=== PATIENT | female | born 1950 | race Caucasian/White ===

== ENCOUNTER 2021-08-21 09:19 | Day surgery (SDC) | payer MEDICARE ==
[2021-08-17 16:57] VITALS: BMI 39.4
[~2021-08-21 09:19] MED LIST: ALPRAZolam 0.25 MG TAB PO PRN; ALPRAZolam 0.5 MG TAB PO PRN; ASPIRIN 325 MG TAB PO STA; ATORVASTATIN 80 MG TAB PO STA; HEPARIN SODIUM,PORCINE 10,000 UNIT in SODIUM CHLORIDE 0.9% 1,000 ML IRRIGATION PRN; HEPARIN SODIUM,PORCINE 2,500 UNIT in SODIUM CHLORIDE 0.9% 250 ML IRRIGATION PRN; NITROGLYCERIN SL TABS 0.4 MG TAB SUBLINGUAL PRN
[2021-08-21] MEDS ORDERED: SODIUM CHLORIDE 0.9% 1,000 ML in EMPTY BAG 1 BAG IV SCH (09:30)
[2021-08-21] MEDS ORDERED: SODIUM CHLORIDE 0.9% 1,000 ML IV ONE ×3 (09:49→14:30)
[2021-08-21 10:05] LABS: Glucose,Whole Blood 101 mg/dL (75-99)
[2021-08-21 10:17] VITALS: RESP 16; TEMP 98.3
[2021-08-21 10:27] LABS: Calcium 8.9 mg/dL (8.4-10.2); Potassium 3.8 mmol/L (3.5-5.1)
[2021-08-21 10:32] LABS: Basophils # (A) 0.1 k/uL (0-0.2); Basophils % (A) 2 %; Eosinophils # (A) 0.2 k/uL (0-0.7); Eosinophils % (A) 2 %; HCT 36.8 % (34.0-46.0); HGB 11.4 gm/dL (11.4-16.0); Lymphocytes # (A) 2.1 k/uL (1.0-4.8); Lymphocytes % (A) 33 %; MCH 32.3 pg (25.0-35.0); MCHC 30.9 g/dL (31.0-37.0); MCV 104.5 fL (80.0-100.0); Macrocytosis Slight; Mean Platelet Volume 8.2; Monocytes # (A) 0.4 k/uL (0-1.0); Monocytes % (A) 7 %; Neutrophils # (A) 3.5 k/uL (1.3-7.7); Neutrophils % (A) 54 %; Platelet Count 217 k/uL (150-450); RBC 3.52 m/uL (3.80-5.40); RDW 14.1 % (11.5-15.5); WBC 6.5 k/uL (3.8-10.6)
[2021-08-21] MEDS ORDERED: HEPARIN SODIUM 1,000 UN/ML (10ML VL) ONE (12:02)
[2021-08-21] MEDS ORDERED: VERAPAMIL 2.5 MG/ML 2 ML AMP ONE (12:02)
[2021-08-21] MEDS ORDERED: fentaNYL (PF) 50 MCG/ML 2 ML AMP ONE (12:15)
[2021-08-21] MEDS ORDERED: LIDOCAINE 1% PF 10 MG/ML (5 ML AMP) SQ ONE (12:19)
[2021-08-21] MEDS ORDERED: MIDAZOLAM 2 MG/2 ML VIAL IV ONE (12:19)
[2021-08-21] MEDS ORDERED: fentaNYL (PF) 50 MCG/ML 2 ML AMP IV ONE (12:19)
[2021-08-21] MEDS ORDERED: VERAPAMIL SYRINGE (5 MG/10 ML) INTRAARTER ONE (12:20)
[2021-08-21] MEDS ORDERED: HEPARIN SODIUM 1,000 UN/ML (10ML VL) IV ONE (12:21)
[2021-08-21] MEDS ORDERED: IOPAMIDOL-370 125ML BTL INJ ONE (12:31)
[2021-08-21] MEDS ORDERED: SODIUM CHLORIDE 0.9% 1,000 ML IV SCH (12:45)
--- NOTE | 2021-08-21 12:48 | P.CARDCATH ---
Description of Procedure: PROCEDURES PERFORMED: Left heart catheterization, bilateral coronary angiography INDICATION: Abnormal Stress test with anterior ischemia CONSENT:I have discussed the risks, benefits and alternative therapies for the above-mentioned procedure and for both sedation/analgesia as well as necessary blood product administration, if indicated, as they pertain to this patient. The patient has indicated understanding and acceptance of the risks and procedures discussed. PROCEDURE: After the risks, benefits and alternatives of the above mentioned procedure explained in detail with the patient, informed consent was obtained. Patient was given hydration per P[place]on protocol secondary to CKD. Patient was taken to the catheterization lab and prepped and draped in usual fashion. 1% lidocaine was used to anesthetize the right radial artery. A 6-Cymro sheath was placed in the right radial artery using modified Seldinger technique. Left coronary angiography was performed with a 5-Cymro JL 3.5 catheter and right coronary angiography was performed with a 5-Cymro JR5 catheter in various views. A 5-Cymro FR5 catheter was inserted into the left ventricle and pressure measurements were obtained. The right radial sheath was removed and a TR band was placed with hemostasis achieved. The patient tolerated the procedure well. Patient was transported back to the post catheterization holding area in stable condition. Conscious Sedation: Patient was monitored under the direct supervision of vision of myself for conscious sedation using Versed and fentanyl for a total duration of 15 minutes HEMODYNAMICS: Aortic: 178/76 LV: 169/4 LVEDP 9 SELECTIVE CORONARY ARTERIOGRAPHY: LEFT MAIN: The left main is a large caliber vessel which bifurcates into the LAD and circumflex. There is no significant stenosis. LEFT ANTERIOR DESCENDING CORONARY ARTERY: LAD is a large caliber vessel which wraps around to the apex. There is no significant stenosis. LEFT CIRCUMFLEX CORONARY ARTERY: Left circumflex is a large caliber vessel which gives off the PDA and is the dominant vessel and has no significant stenosis. RIGHT CORONARY ARTERY: The right coronary artery is a small caliber vessel which gives off an acute marginal branch and has no significant stenosis. FINAL IMPRESSION: 1. Normal coronary arteries as described above. 2. Normal left sided filling pressures PLAN: 1. Aggressive risk factor modification per most recent ACC/AHA guidelines. 2. Follow-up in the office in 1-2 weeks.
[2021-08-21 17:58] VITALS: BP 152/85; PULSE 62
== END 2021-08-21 16:50 | disposition home or self-care (01) ==
LOC: CATHCVL 09:19
PROVIDERS: ATTEND Internal Medicine
DX: R94.39 Abnormal result of other cardiovascular function study (principal); Z20.822 Contact with and (suspected) exposure to COVID-19
CPT/HCPCS: 93458; 80048; 85025; 87635; C1894; J2250; J2001; J3010; J1644; Q9967

== ENCOUNTER 2021-11-18 04:29 | Inpatient (IN) | payer MEDICARE ==
[2021-11-18] MEDS ORDERED: SODIUM CHLORIDE 0.9% 1,000 ML IV STA (04:42)
--- NOTE | 2021-11-18 04:44 | ED ---
Syncope HPI - General Chief Complaint: Syncope Stated Complaint: Syncope Time Seen by Provider: 11/18/21 04:42 Source: patient, EMS Mode of arrival: EMS Limitations: no limitations - Related Data Home Medications Medication Instructions Recorded Confirmed Aspirin 81 mg PO DAILY 09/30/14 08/21/21 Glimepiride [Amaryl] 1 mg PO DAILY 09/30/14 08/21/21 Insulin Glargine [Lantus] 15 unit SQ QAM 09/30/14 08/21/21 Simvastatin [Zocor] 20 mg PO HS 09/30/14 08/21/21 allopurinoL [Zyloprim] 200 mg PO DAILY 09/30/14 08/21/21 Omeprazole [PriLOSEC] 20 mg PO AC-BRKFST 10/03/14 08/21/21 Gabapentin [Neurontin] 300 mg PO BID 02/13/15 08/21/21 Multivitamins, Thera [Theragran] 1 each PO DAILY 02/13/15 08/21/21 Ascorbic Acid [Vitamin C] 1,000 mg PO DAILY 07/06/15 08/21/21 Calcium Carbonate [Calcium] 1,200 mg PO DAILY 07/06/15 08/21/21 ALPRAZolam [Xanax] 0.5 mg PO HS 07/11/15 08/21/21 Cholecalciferol [Vitamin D3 (25 50 mcg PO Q2D 08/17/21 08/21/21 Mcg = 1000 Iu)] L.acidoph,Paracasei, B.lactis 1 each PO DAILY 08/17/21 08/21/21 [Probiotic] Letrozole [Femara] 2.5 mg PO DAILY 08/17/21 08/21/21 Metoprolol Succinate (ER) [Toprol 25 mg PO HS 08/17/21 08/21/21 Xl] Pioglitazone [Actos] 15 mg PO DAILY 08/17/21 08/21/21 Turmeric Root Extract [Turmeric] 500 mg PO DAILY 08/17/21 08/21/21 diphenhydrAMINE [Benadryl] 25 mg PO DAILY PRN 08/17/21 08/21/21 lisinopriL [Zestril] 5 mg PO HS 08/17/21 08/21/21 Allergies Allergy/AdvReac Type Severity Reaction Status Date / Time cephalexin monohydrate Allergy vaginal Verified 11/18/21 04:34 [From Keflex] irritation gluten Allergy Abdominal Verified 11/18/21 04:34 Pain mold Allergy Dyspnea Verified 11/18/21 04:34 tap water AdvReac Diarrhea Uncoded 11/18/21 04:34 Review of Systems ROS Statement: Those systems with pertinent positive or pertinent negative responses have been documented in the HPI. ROS Other: All systems not noted in ROS Statement are negative. Past Medical History Past Medical History: Asthma, Cancer, Diabetes Mellitus, GERD/Reflux, GI Bleed, Hyperlipidemia, Hypertension, Osteoarthritis (OA), Renal Disease, Skin Disorder Additional Past Medical History / Comment(s): migraines, gout, hx renal failure 2010, currently stage 3-sees Dr. Hayden, skin and left breast cancer , hx psoriasis from chemo/radiation, occasional hand & mouth tremors, GI bleed in May. & was @[facility], 2nd admission end of May. for elevated BP & "heart" problems History of Any Multi-Drug Resistant Organisms: C-DIFF Date of last positivie culture/infection: 2010 MDRO Source:: stool Past Surgical History: Breast Surgery, Cholecystectomy, Hysterectomy Additional Past Surgical History / Comment(s): left breast lumpectomy/lymph node removed, basal cell cancer removed rt shoulder, benign tumor removed from forehead, medi-port insertion & then removal, cataracts removed Past Anesthesia/Blood Transfusion Reactions: Motion Sickness Additional Past Anesthesia/Blood Transfusion Reaction / Comment(s): has had sore throat post-op @times, difficult IV access-best area is right anticubital per pt. 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 ] Respiratory 18 Rate Blood Pressure 147/50 O2 Sat by Pulse 96 Oximetry EKG Findings - EKG Comments: EKG Findings:: EKG is sinus bradycardia 42 OK 148 QRS 90 QTC 416 Medical Decision Making - Lab Data Result diagrams: 11/18/21 05:24 Lab Results 11/18/21 Range/Units 05:24 WBC 10.1 (3.8-10.6) k/uL RBC 3.70 L (3.80-5.40) m/uL Hgb 11.9 (11.4-16.0) gm/dL Hct 37.8 (34.0-46.0) % MCV 102.2 H (80.0-100.0) fL MCH 32.1 (25.0-35.0) pg MCHC 31.4 (31.0-37.0) g/dL RDW 15.3 (11.5-15.5) % Plt Count 265 (150-450) k/uL MPV 8.4 Neutrophils % 72 % Lymphocytes % 17 % Monocytes % 6 % Eosinophils % 2 % Basophils % 1 % Neutrophils # 7.3 (1.3-7.7) k/uL Lymphocytes # 1.7 (1.0-4.8) k/uL Monocytes # 0.6 (0-1.0) k/uL Eosinophils # 0.2 (0-0.7) k/uL Basophils # 0.1 (0-0.2) k/uL Macrocytosis Slight Disposition Clinical Impression: Dehydration, Syncope, Bradycardia, Weakness Disposition: ADMITTED IP TO THIS HOSP Condition: Fair Is patient prescribed a controlled substance at d/c from ED?: No Referrals: Jack Maya MD [Primary Care Provider] - 1-2 days
[2021-11-18 06:06] LABS: Basophils # (A) 0.1 k/uL (0-0.2); Basophils % (A) 1 %; Eosinophils # (A) 0.2 k/uL (0-0.7); Eosinophils % (A) 2 %; HCT 37.8 % (34.0-46.0); HGB 11.9 gm/dL (11.4-16.0); Lymphocytes # (A) 1.7 k/uL (1.0-4.8); Lymphocytes % (A) 17 %; MCH 32.1 pg (25.0-35.0); MCHC 31.4 g/dL (31.0-37.0); MCV 102.2 fL (80.0-100.0); Macrocytosis Slight; Mean Platelet Volume 8.4; Monocytes # (A) 0.6 k/uL (0-1.0); Monocytes % (A) 6 %; Neutrophils # (A) 7.3 k/uL (1.3-7.7); Neutrophils % (A) 72 %; Platelet Count 265 k/uL (150-450); RDW 15.3 % (11.5-15.5); WBC 10.1 k/uL (3.8-10.6)
[2021-11-18] MEDS ORDERED: NALOXONE 0.4 MG/ML 1 ML VIAL IV PRN (06:10)
[2021-11-18] MEDS ORDERED: ONDANSETRON 4 MG/2 ML VIAL IVP PRN (06:10)
[2021-11-18 06:18] LABS: Albumin 4.3 g/dL (3.5-5.0); Calcium 10.1 mg/dL (8.4-10.2); Magnesium 1.4 mg/dL (1.6-2.3); Potassium 4.9 mmol/L (3.5-5.1); Total Bilirubin 0.5 mg/dL (0.2-1.3); Total Protein 7.7 g/dL (6.3-8.2)
[2021-11-18] MEDS: SODIUM CHLORIDE 0.9% 1,000 ML IV SCH (06:29)
[2021-11-18 06:32] LABS: INR 0.9 (<1.2); Prothrombin Time 10.3 sec (9.0-12.0)
[2021-11-18 06:43] LABS: Partial Thromboplastin Time 21.5 sec (22.0-30.0)
--- NOTE | 2021-11-18 07:15 | XR ---
EXAMINATION TYPE: XR chest 1V portable DATE OF EXAM: 11/18/2021 COMPARISON: 07/19/2015 HISTORY: Syncope TECHNIQUE: Single view FINDINGS: There is no heart failure nor confluent pneumonic infiltrate. Costophrenic angles are clear . There are chest leads. Bony thorax is intact IMPRESSION: No active cardiopulmonary disease. There is clearing of the patchy infiltrate in the left lung compared to old exam.
[2021-11-18] MEDS ORDERED: PANTOPRAZOLE 40 MG/10 ML VIAL IV SCH (09:00)
[2021-11-18] MEDS ORDERED: ACETAMINOPHEN TAB 325 MG TAB PO PRN (09:15)
[2021-11-18] MEDS ORDERED: Magnesium Replacement Protocol 1 EACH MISC MISCELLANE PRN (09:22)
--- NOTE | 2021-11-18 09:24 | P.HPIM ---
History of Present Illness This is a pleasant 71 years old female with past medical history of hypertension, hyperlipidemia, diabetes mellitus Patient could not provide information and it was obtained from at bedside. Patient says that recently earlier this month she was [facility]. However at baseline she is awake and alert but she was becoming more sleepy most of the day over the last 2 days and complaining of from some mild headache this morning. She has difficulty moving around our standing up from sitting position and reports weakness in her legs. stated that she's been feeling dizzy and she's been hallucinating and talking about people in the room were normal but the there was a , she was talking on since Earlier this morning she told her she blacked out for half an admit and he thinks she has TIA and that's why he was referred to the hospital. Also she is pending Right flank and back pain. However no reports of chest pain or dyspnea or coughing. No vomiting or diarrhea abdominal pain. No urgency or abnormal. no Reports fever Vitals are stable but she is bradycardic with heart rate 50, 42,39. Shows elevated BP 178/70. Labs are unremarkable including CBC, INR. D-dimer is elevated at 2.1 Creatinine is elevated 1.3. Which looks baseline Normal liver enzymes and bilirubin Chest x-ray: No active cardiopulmonary disease. In the emergency room patient received magnesium and normal saline. V/Q scan was ordered Stock Broker Supervisor consulted Patient had a normal cardiac cath on 08/21/2021 Review of Systems ROS unobtainable: due to mental status Past Medical History Past Medical History: Asthma, Cancer, Diabetes Mellitus, GERD/Reflux, GI Bleed, Hyperlipidemia, Hypertension, Osteoarthritis (OA), Renal Disease, Skin Disorder Additional Past Medical History / Comment(s): migraines, gout, hx renal failure 2010, currently stage 3-sees Dr. Hayden, skin and left breast cancer , hx p soriasis from chemo/radiation, occasional hand & mouth tremors, GI bleed in May. & was @[facility], 2nd admission end of May. for elevated BP & "heart" problems, testing for parkinsons History of Any Multi-Drug Resistant Organisms: C-DIFF Date of last positivie culture/infection: 2010 MDRO Source:: stool Past Surgical History: Breast Surgery, Cholecystectomy, Hysterectomy Additional Past Surgical History / Comment(s): left breast lumpectomy/lymph node removed, basal cell cancer removed rt shoulder, benign tumor removed from forehead, medi-port insertion & then removal, cataracts removed Past Anesthesia/Blood Transfusion Reactions: Motion Sickness Additional Past Anesthesia/Blood Transfusion Reaction / Comment(s): has had sore throat post-op @times, difficult IV access-best area is right anticubital per pt. Past Psychological History: No Psychological Hx Reported Smoking Status: Never smoker Past Alcohol Use History: None Reported Past Drug Use History: None Reported - Past Family History Father Family Medical History: Cancer Additional Family Medical History / Comment(s): prostate, lymphoma Mother Family Medical History: Deep Vein Thrombosis (DVT) Medications and Allergies Home Medications Medication Instructions Recorded Confirmed Type Aspirin 81 mg PO DAILY 09/30/14 11/18/21 History Glimepiride [Amaryl] 1 mg PO BID 09/30/14 11/18/21 History Insulin Glargine [Lantus] 15 unit SQ QAM 09/30/14 11/18/21 History allopurinoL [Zyloprim] 200 mg PO DAILY 09/30/14 11/18/21 History Omeprazole [PriLOSEC] 20 mg PO AC-BRKFST 10/03/14 11/18/21 History Gabapentin [Neurontin] 300 mg PO BID 02/13/15 11/18/21 History Multivitamins, Thera [Theragran] 1 each PO DAILY 02/13/15 11/18/21 History Ascorbic Acid [Vitamin C] 1,000 mg PO DAILY 07/06/15 11/18/21 History Calcium Carbonate [Calcium] 1,200 mg PO DAILY 07/06/15 11/18/21 History ALPRAZolam [Xanax] 0.5 mg PO HS 07/11/15 11/18/21 History Cholecalciferol [Vitamin D3 (25 50 mcg PO Q2D 08/17/21 11/18/21 History Mcg = 1000 Iu)] George Kebede B.lactis 1 each PO DAILY 08/17/21 11/18/21 History [Probiotic] Letrozole [Femara] 2.5 mg PO DAILY 08/17/21 11/18/21 History Pioglitazone [Actos] 15 mg PO DAILY 08/17/21 11/18/21 History Turmeric Root Extract [Turmeric] 500 mg PO DAILY 08/17/21 11/18/21 History diphenhydrAMINE [Benadryl] 25 mg PO DAILY PRN 08/17/21 11/18/21 History lisinopriL [Zestril] 5 mg PO HS 08/17/21 11/18/21 History Acetaminophen [Tylenol Arthritis] 650 mg PO BID 11/18/21 11/18/21 History Atorvastatin [Lipitor] 10 mg PO HS 11/18/21 11/18/21 History calcitrioL [Calcitriol] 0.25 mcg PO WEEKLY 11/18/21 11/18/21 History Allergies Allergy/AdvReac Type Severity Reaction Status Date / Time cephalexin monohydrate Allergy vaginal Verified 11/18/21 04:34 [From Keflex] irritation gluten Allergy Abdominal Verified 11/18/21 04:34 Pain mold Allergy Dyspnea Verified 11/18/21 04:34 tap water AdvReac Diarrhea Uncoded 11/18/21 04:34 Physical Exam Vitals: Vital Signs Temp Pulse Pulse Resp BP Pulse Ox 11/18/21 06:24 97.5 F L 39 L 18 178/70 94 L 11/18/21 05:06 42 L 11/18/21 04:32 97.4 F L 50 L 18 147/50 96 Intake and Output 11/17/21 11/18/21 11/18/21 22:59 06:59 14:59 Other: Weight 104.326 kg 104.326 kg -GENERAL: The patient is drowsy, almost obtunded, except to verbal and tactile stimuli, mumbled some answers before she got back to sleep. Morbidly obese HEENT: Pupils are round and equally reacting to light. EOMI. No scleral icterus. No conjunctival pallor. Normocephalic, atraumatic. No pharyngeal erythema. No thyromegaly. CARDIOVASCULAR: S1 and S2 present. No murmurs, rubs, or gallops. PULMONARY: Chest is clear to auscultation, no wheezing or crackles. ABDOMEN: Soft, nontender, nondistended, normoactive bowel sounds. No palpable organomegaly. MUSCULOSKELETAL: No joint swelling or deformity. EXTREMITIES: No cyanosis, clubbing, or pedal edema. -NEUROLOGICAL: Very drowsy as above, pupils are equal and reactive to light, nor mal symmetry is noted in the movement. Meningeal signs are absent and her neck is supple, her neurological exam is limited by the patient condition SKIN: No rashes. no petechiae. Results CBC & Chem 7: 11/18/21 05:24 11/18/21 05:24 Labs: Abnormal Lab Results - Last 24 Hours (Table) 11/18/21 11/18/21 11/18/21 Range/Units 05:24 05:24 05:24 RBC 3.70 L (3.80-5.40) m/uL MCV 102.2 H (80.0-100.0) fL APTT 21.5 L (22.0-30.0) sec D-Dimer 2.11 H (<0.60) mg/L FEU BUN 24 H (7-17) mg/dL Creatinine 1.37 H (0.52-1.04) mg/dL Glucose 222 H (74-99) mg/dL Magnesium 1.4 L (1.6-2.3) mg/dL Assessment and Plan Assessment: Altered mental status, most likely metabolic/toxic encephalopathy. Ruled out intracranial lesion Acute syncope with bradycardia Elevated d-dimer. Check V/Q scan and venous Doppler of the legs Chronic kidney disease, stage III. Most likely diabetic nephropathy Hypertension Hyperlipidemia Obesity with BMI of 39.5. Plan: This is a pleasant 71 years old female who presents with syncope and bradycardia Continue with telemetry Check TSH Cardiology consult Check V/Q scan and venous Doppler of the legs Check bladder scan and urinalysis Consulting neurologist Continue with the neuro check discontinue Xanax, Benadryl, hold gabapentin. Hold glimepiride and insulin and continue with insulin sliding scale Hold letrozol for her breast cancer Some blood pressure medication lisinopril Check computed tomography scan of the brain Labs and medication were reviewed.. Continue same treatment. Continue with symptomatic treatment. Resume home medication. Monitor lytes and vitals. DVT and GI prophylaxis. Further recommendations as per clinical course of the patient DVT prophylaxis: Subcutaneous heparin (IF CT OF Brain is negative) GI Prophylaxis: Pepcid PT/OT: Pending Prognosis is guarded
--- NOTE | 2021-11-18 09:26 | US ---
EXAMINATION TYPE: US venous doppler duplex LE DATE OF EXAM: 11/18/2021 9:13 AM COMPARISON: NONE CLINICAL HISTORY: leg swelling. SIDE PERFORMED: Bilateral TECHNIQUE: The lower extremity deep venous system is examined utilizing real time linear array sonog darwin with graded compression, doppler sonography and color-flow sonography. VESSELS IMAGED: Common Femoral Vein Deep Femoral Vein Greater Saphenous Vein * Femoral Vein Popliteal Vein Small Saphenous Vein * Proximal Calf Veins (* superficial vessels) Somewhat limited technically difficult study due to large body habitus and patient inability to move legs. Right Leg: Negative for DVT Left Leg: Negative for DVT IMPRESSION: 1. Bilateral lower extremity ultrasound negative for deep venous thrombosis.
[2021-11-18] MEDS: MAGNESIUM SULFATE-D5W PMX 1 GM in DEXTROSE/WATER 1 100ML.BAG IVPB SCH ×2 (09:40→12:17)
--- NOTE | 2021-11-18 11:37 | NM ---
EXAMINATION TYPE: NM pul vent and perfuse DATE OF EXAM: 11/18/2021 COMPARISON: Chest x-ray 11/18/2021 HISTORY: PE TECHNIQUE: Utilizing inhalation of 62.2 mCi Tc 99m DTPA aerosol and intravenous injection of 5 mCi o f Tc 99m MAA, ventilation and perfusion images are acquired post injection in multiple projections. FINDINGS: No moderate or large mismatched defects are evident. No triple matched defects are evident. IMPRESSION: Low probability for pulmonary embolism.
--- NOTE | 2021-11-18 11:55 | CT ---
EXAMINATION TYPE: CT brain wo con DATE OF EXAM: 11/18/2021 COMPARISON: None INDICATION: AMS DLP: 1116.0 mGycm, Automated exposure control for dose reduction was used. CONTRAST: None CT of the brain is performed utilizing 3 mm thick sections through the posterior fossa and 3 mm thick sections through the remaining calvarium. Study is performed within 24 hours of arrival to the hosp ital. No abnormal hyperdensity is present to suggest an acute intracranial hemorrhage. No mass lesion is evident. No acute infarcts are evident. Minimal periventricular white matter hypodensity is present may be rel ated to microvascular ischemic change. Ventricles and sulci are prominent for the patient age. Paranasal sinuses and mastoid air cells within the [id number] are clear. Hyperostosis frontalis internus, normal variant, is present. IMPRESSIONS: 1. Minimal periventricular white matter hypodensity may be related to microvascular ischemic change . Follow-up MRI can be performed as clinically indicated.
[2021-11-18] MEDS: TAMSULOSIN 0.4 MG CAP.ER.24H PO SCH (12:17)
[2021-11-18 13:46] LABS: Appearance,Urine Clear (Clear); Bilirubin,Urine Negative (Negative); Blood,Urine Negative (Negative); Color,Urine Colorless; Glucose,Urine (UA) Negative (Negative); Ketones,Urine Negative (Negative); Leukocyte Esterase,Urine Negative (Negative); Nitrite,Urine Negative (Negative); Protein,Urine Negative (Negative); Specific Gravity,Urine 1.008 (1.001-1.035); Urobilinogen,Urine <2.0 mg/dL (<2.0)
--- NOTE | 2021-11-18 14:01 | P.CRDCN ---
History of Present Illness History of present illness: HISTORY OF PRESENTING ILLNESS Patient is pleasant 71-year-old female with history of hypertension, hyperlipidemia, diabetes mellitus, neuropathy, breast cancer, GERD, prior GI bleed, chronic kidney disease, migraines, tremors, elevated troponins however normal coronary arteries by heart catheterization 08/21/2021 who presents secondary to lethargy and weakness. Patient fairly somnolent and most of history is supplied by . She has been having issues with lightheadedness and dizzy for months however has been worse in the last 2-3 weeks. Has been complaining of headaches as well as sleepiness. She had presented to [facility] his discharge on 10/30 with what appears to be contaminant blood culture and I'll elevated troponin with elevated blood pressures. She was i ncreased on her lisinopril and it also been admitted to the hospital for syncopal episode. Additionally 10/17/2021 she had abdominal pain and hallucinations and CT abdomen and pelvis showed no acute process. believes she was previously on metoprolol however this had been stopped. She denies any chest pain or pressure shortness breath. She is mainly feeling lightheaded like she can pass out. EKG shows sinus bradycardia with heart rate 42 bpm, left axis deviation, no significant ST-T wave abnormalities. Blood pressures have been in the systolics 140s to 170s. Blood work shows hemoglobin 11.9, white blood cell count 10.1, d- dimer 2.1, creatinine 1.3, magnesium 1.4, troponins normal 3. Her home Neurontin, Xanax have been discontinued. Telemetry reveals sinus bradycardia with heart rates in the upper 30s to 40s. REVIEW OF SYSTEMS At the time of my exam: CONSTITUTIONAL: Denies fever or chills. CARDIOVASCULAR: Denies chest pain, shortness of breath, orthopnea, PND or palpitations. +lightheadedness RESPIRATORY: Denies cough. GASTROINTESTINAL: Denies abdominal pain, diarrhea, constipation, nausea or vomiting. MUSCULOSKELETAL: Denies myalgias. NEUROLOGIC: Denies numbness, tingling or weakness. ENDOCRINE: Denies fatigue, weight change, polydipsia or polyurina. GENITOURINARY: Denies burning, hematuria or urgency with micturation. HEMATOLOGIC: Denies history of anemia or bleeding. PHYSICAL EXAMINATION Vital signs reviewed. CONSTITUTIONAL: No apparent distress, lethargic ill appearing HEENT: Head is normocephalic. Pupils are equal, round. Sclerae anicteric. Mucous membranes of the mouth are moist. No JVD. No carotid bruit. CHEST EXAMINATION: Lungs are clear to auscultation. No chest wall tenderness is noted on palpation or with deep breathing. HEART EXAMINATION: Regular rate and rhythm. S1, S2 heard. No murmurs, gallops or rub. ABDOMEN: Soft, nontender. Positive bowel sounds. EXTREMITIES: 2+ peripheral pulses, no lower extremity edema and no calf tenderne ss. NEUROLOGIC EXAMINATION: Patient is awake somnolent ASSESSMENT 1. Lethargy, altered mental status, recent hallucinations unclear etiology. Questionable metabolic etiology versus metastatic versus neurologic process 2. Significant sinus bradycardia unclear symptomatic or not 3. Hypertension elevated 4. Lightheadedness 5. Diabetes mellitus type 2 6. Chronic kidney disease 7. Debility PLAN Patient with multiple recent admissions and workup. Patient with lethargy which appears more metabolic however additionally does have significant bradycardia without any significant negative chronotropic status at home. Check TSH. Trial of dopamine and monitor neurologic status improves at all with higher heart rates. Neurology recommendations appreciated. Obtain records from [facility]. Further recommendations to follow. Past Medical History Past Medical History: Asthma, Cancer, Diabetes Mellitus, GERD/Reflux, GI Bleed, Hyperlipidemia, Hypertension, Osteoarthritis (OA), Renal Disease, Skin Disorder Additional Past Medical History / Comment(s): migraines, gout, hx renal failure 2010, currently stage 3-sees Dr[address] Hayden, skin and left breast cancer , hx psoriasis from chemo/radiation, occasional hand & mouth tremors, GI bleed in May. & was @[facility], 2nd admission end of May. for elevated BP & "heart" problems, testing for parkinsons History of Any Multi-Drug Resistant Organisms: C-DIFF Date of last positivie culture/infection: 2010 MDRO Source:: stool Past Surgical History: Breast Surgery, Cholecystectomy, Hysterectomy Additional Past Surgical History / Comment(s): left breast lumpectomy/lymph node removed, basal cell cancer removed rt shoulder, benign tumor removed from forehead, medi-port insertion & then removal, cataracts removed Past Anesthesia/Blood Transfusion Reactions: Motion Sickness Additional Past Anesthesia/Blood Transfusion Reaction / Comment(s): has had sore throat post-op @times, difficult IV access-best area is right anticubital per pt. Past Psychological History: No Psychological Hx Reported Smoking Status: Never smoker Past Alcohol Use History: None Reported Past Drug Use History: None Reported - Past Family History Father Family Medical History: Cancer Additional Family Medical History / Comment(s): prostate, lymphoma Mother Family Medical History: Deep Vein Thrombosis (DVT) Medications and Allergies Home Medications Medication Instructions Recorded Confirmed Type Aspirin 81 mg PO HS 09/30/14 11/18/21 History Glimepiride [Amaryl] 2 mg PO DAILY 09/30/14 11/18/21 History allopurinoL [Zyloprim] 200 mg PO DAILY 09/30/14 11/18/21 History Gabapentin [Neurontin] 300 mg PO BID 02/13/15 11/18/21 History Multivitamins, Thera [Theragran] 1 tab PO DAILY 02/13/15 11/18/21 History Cholecalciferol [Vitamin D3 (25 50 mcg PO Q48H 08/17/21 11/18/21 History Mcg = 1000 Iu)] George Kebede BKelseylactis 1 cap PO DAILY 08/17/21 11/18/21 History [Probiotic] Letrozole [Femara] 2.5 mg PO DAILY 08/17/21 11/18/21 History Pioglitazone [Actos] 15 mg PO DAILY 08/17/21 11/18/21 History Turmeric Root Extract [Turmeric] 500 mg PO DAILY 08/17/21 11/18/21 History diphenhydrAMINE [Benadryl] 25 mg PO HS 08/17/21 11/18/21 History ALPRAZolam [Xanax] 0.5 mg PO HS 11/18/21 11/18/21 History Acetaminophen [Tylenol Arthritis] 650 mg PO BID 11/18/21 11/18/21 History Ascorbic Acid [Vitamin C] 1,000 mg PO BID 11/18/21 11/18/21 History Atorvastatin [Lipitor] 10 mg PO HS 11/18/21 11/18/21 History Calcium Carbonate/Vitamin D3 1 tab PO BID 11/18/21 11/18/21 History [Calcium 600 mg-D3 20 mcg (800 unit)] Insulin Glargine,Hum.rec.anlog 15 units SQ DAILY 11/18/21 11/18/21 History [Lantus Solostar Pen] Omeprazole [PriLOSEC] 20 mg PO AC-BRKFST 11/18/21 11/18/21 History calcitrioL [Calcitriol] 0.25 mcg PO WE 11/18/21 11/18/21 History lisinopriL [Zestril] 10 mg PO HS 11/18/21 11/18/21 History Allergies Allergy/AdvReac Type Severity Reaction Status Date / Time cephalexin monohydrate Allergy vaginal Verified 11/18/21 12:27 [From Keflex] irritation gluten Allergy Abdominal Verified 11/18/21 12:27 Pain Milk Containing Products Allergy Unknown Verified 11/18/21 12:27 [Dairy] mold Allergy Dyspnea Verified 11/18/21 12:27 tap water AdvReac Diarrhea Uncoded 11/18/21 12:27 Physical Exam Vitals: Vital Signs Temp Pulse Pulse Resp BP BP Pulse Ox 11/18/21 12:00 44 L 16 148/73 95 11/18/21 09:00 44 L 16 11/18/21 08:00 97.4 F L 44 L 16 180/83 94 L 11/18/21 06:24 97.5 F L 39 L 18 178/70 94 L 11/18/21 05:06 42 L 11/18/21 04:32 97.4 F L 50 L 18 147/50 96 Intake and Output 11/17/21 11/18/21 11/18/21 22:59 06:59 14:59 Output Total 1200 Balance -1200 Output: Urine 1200 Other: # Voids 1 Weight 104.326 kg 104.326 kg Results 11/18/21 05:24 11/18/21 05:24 Cardiac Enzymes 11/18/21 11/18/21 11/18/21 Range/Units 05:24 05:24 09:43 AST 30 (14-36) U/L Troponin I <0.012 <0.012 (0.000-0.034) ng/mL 11/18/21 Range/Units 12:06 AST (14-36) U/L Troponin I <0.012 (0.000-0.034) ng/mL Coagulation 11/18/21 Range/Units 05:24 PT 10.3 (9.0-12.0) sec APTT 21.5 L (22.0-30.0) sec CBC 11/18/21 Range/Units 05:24 WBC 10.1 (3.8-10.6) k/uL RBC 3.70 L (3.80-5.40) m/uL Hgb 11.9 (11.4-16.0) gm/dL Hct 37.8 (34.0-46.0) % Plt Count 265 (150-450) k/uL Comprehensive Metabolic Panel 11/18/21 Range/Units 05:24 Sodium 141 (137-145) mmol/L Potassium 4.9 (3.5-5.1) mmol/L Chloride 105 (98-107) mmol/L Carbon Dioxide 27 (22-30) mmol/L BUN 24 H (7-17) mg/dL Creatinine 1.37 H (0.52-1.04) mg/dL Glucose 222 H (74-99) mg/dL Calcium 10.1 (8.4-10.2) mg/dL AST 30 (14-36) U/L ALT 19 (4-34) U/L Alkaline Phosphatase 65 (38-126) U/L Total Protein 7.7 (6.3-8.2) g/dL Albumin 4.3 (3.5-5.0) g/dL Current Medications Generic Name Dose Route Start Last Admin Trade Name Freq PRN Reason Stop Dose Admin Acetaminophen 650 mg 11/18/21 09:15 Acetaminophen Tab 325 Mg Tab PO QID PRN Fever and/ or Mild Pain Allopurinol 200 mg 11/19/21 09:00 Allopurinol 100 Mg Tab PO DAILY [facility] Aspirin 81 mg 11/19/21 09:00 Aspirin 81 Mg PO DAILY [facility] Atorvastatin Calcium 10 mg 11/18/21 21:00 Atorvastatin 10 Mg Tab PO HS COLTEN Calcitriol 0.25 mcg 11/21/21 09:00 Calcitriol 0.25 Mcg Cap PO WEEKLY [facility] Heparin Sodium (Porcine) 5,000 unit 11/18/21 21:00 Heparin Sodium,Porcine/Pf 5,000 Unit/0.5 Ml Syringe SQ Q12HR [facility] Sodium Chloride 1,000 mls @ 20 mls/hr 11/18/21 06:30 11/18/21 06:29 Saline 0.9% IV 20 mls/hr .Q24H COLTEN Administration Lisinopril 5 mg 11/18/21 21:00 Lisinopril 5 Mg Tab PO HS [facility] Miscellaneous Information 1 each 11/18/21 09:22 Magnesium Replacement Protocol 1 Each Misc MISCELLANE DAILY PRN Per Protocol Protocol Naloxone HCl 0.2 mg 11/18/21 06:10 Naloxone 0.4 Mg/Ml 1 Ml Vial IV Q2M PRN Opioid Reversal Ondansetron HCl 4 mg 11/18/21 06:10 Ondansetron 4 Mg/2 Ml Vial IVP Q8HR PRN Nausea And Vomiting Pantoprazole Sodium 40 mg 11/18/21 09:00 11/18/21 09:40 Pantoprazole 40 Mg/10 Ml Vial IV 40 mg DAILY COLTEN Administration Tamsulosin HCl 0.4 mg 11/18/21 11:15 11/18/21 12:17 Tamsulosin 0.4 Mg Cap.Er.24h PO 0.4 mg PC-BRKFST COLTEN Administration Intake and Output 11/17/21 11/18/21 11/18/21 22:59 06:59 14:59 Output Total 1200 Balance -1200 Output: Urine 1200 Other: # Voids 1 Weight 104.326 kg 104.326 kg Patient Weight 11/19/21 06:59 Weight 104.326 kg 11/18/21 05:24 11/18/21 05:24
[2021-11-18] MEDS ORDERED: DOPamine DRIP 800 MG in DEXTROSE/WATER 1 250ML.BAG IV SCH (14:30)
[2021-11-18] MEDS: ATORVASTATIN 10 MG TAB PO SCH (20:40)
[2021-11-18] MEDS: HEPARIN SODIUM,PORCINE/PF 5,000 UNIT/0.5 ML SYRINGE SQ SCH (20:40)
[2021-11-18] MEDS: lisinopriL 5 MG TAB PO SCH (20:40)
--- NOTE | 2021-11-19 01:03 | P.CNNES ---
History of Present Illness Consult date: 11/18/21 Requesting physician: Clark Morton Reason for Consult: AMS History of Present Illness: Patient is a 71-year-old right-handed female with history of hypertension, diabetes came to the hospital by ambulance early this morning today at 4:29 AM for evaluation of recurrent syncopal spells. Patient states that she got up to go to the bathroom, felt little dizzy, called her . She came back, went into her bedroom and was standing by the bed, but she just about passed out therefore she laid her in the bed. Patient states "I was very confused, I was hurting and took a Tylenol. Patient is not a very good historian. I spoke to patient's on the phone, who provided additional history. He states that patient has had near syncopal spells once in September, 3 times in October including this current one. All of the spells occurred while she was standing up on her feet. When it happens, he lays her down. Only one time when she was standing, he had her sit on her walker, and patient then stiffened up, and slid down the walker. Ascending this episode lasts for about 15-20 seconds. There is no convulsive activity, tongue bite or loss of control of urine. Patient states she has a cane and walker. She does not use device most of the time. Only when she first wakes up in the morning, she uses a cane because of arthritis. When it is raining or a bad weather, then she uses her walker. According to the EMS flow sheet, when they arrived, patient was laying on side of the bed. Patient states that she had stood up, got dizzy and that the room went dark. She denied loss of consciousness or having fallen. Patient was alert and oriented 4 when EMS arrived. EKG showed sinus bradycardia. Stroke scale was negative. Patient's blood pressure at the scene was 113/59, pulse rate 56 respiration 16 saturation 95%, blood sugar 252. Repeat blood pressure was 94/57. Blood pressure on arrival 147/50. She is afebrile. Blood test shows normal WBC hemoglobin 11.9, with elevated MCV 102.2. Platelets are normal. Electrolytes are normal, BUN 24, creatinine 1.37. Hepatic panel is normal. Troponin negative. UA negative. CT head revealed minimal periventricular white matter hypodensity may be related to microvascular ischemic change. I personally reviewed CT head, agree with the findings. Coleman ous Doppler negative for DVT in either lower limbs. Chest x-ray showed no acute cardiac or disease. Patchy infiltrate in the left lung compared to the old exam. EKG showed sinus bradycardia with heart rate 42. Patient's home medications include aspirin 81 mg, Amaryl, allopurinol, gabapentin 300 mg twice a day, multivitamins, vitamin D, Femara, Actos, Lipitor 10 mg, insulin, lisinopril 10 mg, Xanax 0.5 mg at bedtime. Patient denies any tobacco use or alcohol use. She has diabetes for last 10 years also has hypertension. Patient says that she lost 35 pounds intentionally, and has helped with her diabetes. Patient is following with Dr. Álvarez. Patient had an EEG performed last week at his office, the results are not available. She had an MRI of the brain scheduled next Friday, ENG on Friday, MRI of the lumbar spine and VAT on the MEAGAN and then she will follow up with him about these results on 12/10/2021. Review of Systems Patient has chronic back pain. Patient has dizziness, lightheadedness. Osteoarthritis. Denies any chest pain, double vision, shortness of breath, diarrhea. As above in detail. All other review of systems, reviewed and noncontributory Past Medical History Past Medical History: Asthma, Cancer, Diabetes Mellitus, GERD/Reflux, GI Bleed, Hyperlipidemia, Hypertension, Osteoarthritis (OA), Renal Disease, Skin Disorder Additional Past Medical History / Comment(s): migraines, gout, hx renal failure 2010, currently stage 3-sees Dr. Hayden, skin and left breast cancer , hx psoriasis from chemo/radiation, occasional hand & mouth tremors, GI bleed in May. & was @[facility], 2nd admission end of May. for elevated BP & "heart" problems, testing for parkinsons History of Any Multi-Drug Resistant Organisms: C-DIFF Date of last positivie culture/infection: 2010 MDRO Source:: stool Past Surgical History: Breast Surgery, Cholecystectomy, Hysterectomy Additional Past Surgical History / Comment(s): left breast lumpectomy/lymph node removed, basal cell cancer removed rt shoulder, benign tumor removed from forehead, medi-port insertion & then removal, cataracts removed Past Anesthesia/Blood Transfusion Reactions: Motion Sickness Additional Past Anesthesia/Blood Transfusion Reaction / Comment(s): has had sore throat post-op @times, difficult IV access-best area is right anticubital per pt. Past Psychological History: No Psychological Hx Reported Smoking Status: Never smoker Past Alcohol Use History: None Reported Past Drug Use History: None Reported - Past Family History Father Family Medical History: Cancer Additional Family Medical History / Comment(s): prostate, lymphoma Mother Family Medical History: Deep Vein Thrombosis (DVT) Medications and Allergies Home Medications Medication Instructions Recorded Confirmed Type Aspirin 81 mg PO HS 09/30/14 11/18/21 History Glimepiride [Amaryl] 2 mg PO DAILY 09/30/14 11/18/21 History allopurinoL [Zyloprim] 200 mg PO DAILY 09/30/14 11/18/21 History Gabapentin [Neurontin] 300 mg PO BID 02/13/15 11/18/21 History Multivitamins, Thera [Theragran] 1 tab PO DAILY 02/13/15 11/18/21 History Cholecalciferol [Vitamin D3 (25 50 mcg PO Q48H 08/17/21 11/18/21 History Mcg = 1000 Iu)] L.acidoph,Paracasei, B.lactis 1 cap PO DAILY 08/17/21 11/18/21 History [Probiotic] Letrozole [Femara] 2.5 mg PO DAILY 08/17/21 11/18/21 History Pioglitazone [Actos] 15 mg PO DAILY 08/17/21 11/18/21 History Turmeric Root Extract [Turmeric] 500 mg PO DAILY 08/17/21 11/18/21 History diphenhydrAMINE [Benadryl] 25 mg PO HS 08/17/21 11/18/21 History ALPRAZolam [Xanax] 0.5 mg PO HS 11/18/21 11/18/21 History Acetaminophen [Tylenol Arthritis] 650 mg PO BID 11/18/21 11/18/21 History Ascorbic Acid [Vitamin C] 1,000 mg PO BID 11/18/21 11/18/21 History Atorvastatin [Lipitor] 10 mg PO HS 11/18/21 11/18/21 History Calcium Carbonate/Vitamin D3 1 tab PO BID 11/18/21 11/18/21 History [Calcium 600 mg-D3 20 mcg (800 unit)] Insulin Glargine,Hum.rec.anlog 15 units SQ DAILY 11/18/21 11/18/21 History [Lantus Solostar Pen] Omeprazole [PriLOSEC] 20 mg PO AC-BRKFST 11/18/21 11/18/21 History calcitrioL [Calcitriol] 0.25 mcg PO WE 11/18/21 11/18/21 History lisinopriL [Zestril] 10 mg PO HS 11/18/21 11/18/21 History Allergies Allergy/AdvReac Type Severity Reaction Status Date / Time cephalexin monohydrate Allergy vaginal Verified 11/18/21 12:27 [From Keflex] irritation gluten Allergy Abdominal Verified 11/18/21 12:27 Pain Milk Containing Products Allergy Unknown Verified 11/18/21 12:27 [Dairy] mold Allergy Dyspnea Verified 11/18/21 12:27 tap water AdvReac Diarrhea Uncoded 11/18/21 12:27 Physical Examination - Vital Signs Vital Signs: Vital Signs Temp Pulse Pulse Resp BP BP Pulse Ox 11/18/21 12:00 44 L 16 148/73 95 11/18/21 09:00 44 L 16 11/18/21 08:00 97.4 F L 44 L 16 180/83 94 L 11/18/21 06:24 97.5 F L 39 L 18 178/70 94 L 11/18/21 05:06 42 L 11/18/21 04:32 97.4 F L 50 L 18 147/50 96 Intake and Output 11/17/21 11/18/21 11/18/21 22:59 06:59 14:59 Output Total 1200 Balance -1200 Output: Urine 1200 Other: # Voids 1 Weight 104.326 kg 104.326 kg Patient is an elderly female, in no acute distress. Patient is alert awake oriented to time place and person. Patient states it is November 2021, and that she is in [facility]. She knows name of the current president. Speech and language functions are normal. Attention, c oncentration and fund of knowledge is adequate. On cranial examination, pupils are equal, round and reacting to light, visual norris are full on confrontation, extraocular muscles are intact with no nystagmus. Face is symmetric, tongue protrudes to the midline. Palatal elevation and sensation normal, hearing and shoulder shrug normal, facial sensation normal. Shoulder shrug normal. On muscle strength testing, there is no pronator drift and the strength is normal in arms and legs distally and proximally, except left hip flexion, which is 5-related to arthritis. Deep tendon reflexes are symmetric, 1+ at biceps, 1+ brachioradialis, 2 at the knees 1 ankles and plantars are flat bilaterally. Sensory to touch is equal with no neglect. Patient states both feet are numb due to her diabetes. Cerebellar function showed no ataxia for [id number] testing. No dysdiadochokinesia. Tone and bulk of muscles normal. Gait deferred. On general examination, there is no carotid bruit or murmur, S1-S2 audible. Abdomen is soft nontender. No organomegaly, bowel sounds present. Chest is c lear. Peripheral pulses are present. No edema. Results - Laboratory Findings CBC and BMP: 11/18/21 05:24 11/18/21 05:24 Abnormal Lab Findings: Abnormal Labs 11/18/21 11/18/21 11/18/21 05:24 05:24 05:24 RBC 3.70 L MCV 102.2 H APTT 21.5 L D-Dimer 2.11 H BUN 24 H Creatinine 1.37 H Glucose 222 H Magnesium 1.4 L Assessment and Plan Assessment: * Recurrent near syncopal spells 4 (once in September, 3 in October), possibly orthostatic versus vasovagal. All of these spells occurred while patient was standing up on her feet. * Hypertension * Hyperlipidemia * Diabetes * Osteoarthritis * Chronic renal insufficiency * Macrocytosis Plan: * Check orthostatics. Consider tilt table test. * I recommended EEG, carotid Doppler, and a 2-D echo. Patient states that she had an EEG already performed at Dr. Álvarez office last week, the results are pending. She had carotid Doppler and echo performed at [facility] recently with these near syncopal spells. Patient did not want to repeat these testing. We will try to obtain results for our review. * Check B12, folate. TSH is normal 2.47. Hemoglobin A1c. * Patient is already scheduled for an MRI of the brain, ENG, MRI of the lumbar spine, VAT and MEAGAN at Dr. Álvarez office next week. * Continue aspirin 81 mg and Lipitor 10 mg. * Dr. Yuan Styles will resume neurology service in the morning. * Thank you for the consult
[2021-11-19] MEDS: PANTOPRAZOLE 40 MG TABLET PO SCH (06:27)
[2021-11-19 07:32] LABS: Basophils # (A) 0.1 k/uL (0-0.2); Basophils % (A) 1 %; Eosinophils # (A) 0.2 k/uL (0-0.7); Eosinophils % (A) 2 %; HCT 38.5 % (34.0-46.0); HGB 11.9 gm/dL (11.4-16.0); Lymphocytes # (A) 1.4 k/uL (1.0-4.8); Lymphocytes % (A) 16 %; MCH 31.4 pg (25.0-35.0); MCV 101.3 fL (80.0-100.0); Macrocytosis Slight; Mean Platelet Volume 8.1; Monocytes # (A) 0.6 k/uL (0-1.0); Monocytes % (A) 6 %; Neutrophils # (A) 6.5 k/uL (1.3-7.7); Neutrophils % (A) 73 %; Platelet Count 243 k/uL (150-450); RDW 15.2 % (11.5-15.5); WBC 8.9 k/uL (3.8-10.6)
[2021-11-19 07:58] LABS: Albumin 4.3 g/dL (3.5-5.0); Calcium 9.9 mg/dL (8.4-10.2); Magnesium 1.5 mg/dL (1.6-2.3); Potassium 4.4 mmol/L (3.5-5.1); Total Bilirubin 0.7 mg/dL (0.2-1.3); Total Protein 7.8 g/dL (6.3-8.2)
[2021-11-19] MEDS ORDERED: Magnesium Replacement Protocol 1 EACH MISC MISCELLANE PRN (08:24)
[2021-11-19] MEDS: ASPIRIN 81 MG PO SCH (08:31)
[2021-11-19] MEDS: allopurinoL 100 MG TAB PO SCH (08:31)
[2021-11-19] MEDS: TAMSULOSIN 0.4 MG CAP.ER.24H PO SCH (08:31)
[2021-11-19] MEDS: HEPARIN SODIUM,PORCINE/PF 5,000 UNIT/0.5 ML SYRINGE SQ SCH ×2 (08:31→20:27)
[2021-11-19] MEDS ORDERED: DEXTROSE 50% SYRINGE 50 ML IVP PRN ×2 (08:32)
[2021-11-19] MEDS: MAGNESIUM SULFATE-D5W PMX 1 GM in DEXTROSE/WATER 1 100ML.BAG IVPB SCH ×2 (08:41→11:19)
[2021-11-19] MEDS ORDERED: DOPamine DRIP 800 MG in DEXTROSE/WATER 1 250ML.BAG IV SCH (10:00)
[2021-11-19 11:35] LABS: Glucose,Whole Blood 153 mg/dL (70-110)
[2021-11-19] MEDS: INSULIN ASPART (NovoLOG) 100 UNIT/ML VIAL SQ SCH ×3 (12:06→20:27)
--- NOTE | 2021-11-19 12:39 | P.PN ---
Subjective History of Present Illness: This is a pleasant 71 years old female with past medical history of hypertension, hyperlipidemia, diabetes mellitus Patient could not provide information and it was obtained from at bedside. Patient says that recently earlier this month she was [facility]. However at baseline she is awake and alert but she was becoming more sleepy most of the day over the last 2 days and complaining of from some mild headache this morning. She has difficulty moving around our standing up from sitting position and reports weakness in her legs. stated that she's been feeling dizzy and she's been hallucinating and talking about people in the room were normal but the there was a , she was talking on since Earlier this morning she told her she blacked out for half an admit and he thinks she has TIA and that's why he was referred to the hospital. Also she is pending Right flank and back pain. However no reports of chest pain or dyspnea or coughing. No vomiting or diarrhea abdominal pain. No urgency or abnormal. no Reports fever Vitals are stable but she is bradycardic with heart rate 50, 42,39. Shows elevated BP 178/70. Labs are unremarkable including CBC, INR. D-dimer is elevated at 2.1 Creatinine is elevated 1.3. Which looks baseline Normal liver enzymes and bilirubin Chest x-ray: No active cardiopulmonary disease. In the emergency room patient received magnesium and normal saline. V/Q scan was ordered Obstetrics Gynecology Physician consulted Patient had a normal cardiac cath on 08/21/2021 in reviewing the records from [facility], patient was discharge on 10/30 for positive blood culture which was contaminant, elevated troponin and uncontrolled hypertension. Also because she fell and she could not get up. At that time she was discharged home with home care per physical therapy evaluation, the increase her dose of lisinopril to 10 mg On 10/25 also she was in the hospital for syncope and elevated troponin, at that time her troponin were stopped. Also on 10/17/2021 visited the emergency room for pain and lower abdomen and hallucination and she was feeling lightheadedness, at that time she was found to have urinary tract infection and she received antibiotics CT of the abdomen and pelvis without oral or IV contrast from 10/27/2021: No acute abdominal abnormality or pelvis abnormality. Kidneys were normal in size with no hydronephrosis 11/20/2011 Patient awake alert, sitting in the chair feeling cold and with blunt and on. Patient has hyperthermia and temperature this morning was 96.6. Other vitals are stable. His mentation is back to normal awake alert and answering questions appropriately and follows commands. She denies any complaints this morning. Patient says that she's been having hallucination since August. she denies chest pain or dyspnea . No abdominal pain or vomiting or diarrhea. She is currently on dopamine drip and her heart rate improved to low 60s. Patient been evaluated by neurologist, she is a scheduled for MRI of the brain and lumbar spine with her neurologist Dr. Ferreira within one week. She already had EEG in his office on the result is pending. Per neurologist. Urine analysis is negative. Folate more than 20, TSH normal 2.4, protocol stone and is negative at 0.07. Vitamin B12: Pending. We ordered blood culture today. No other signs of infection She has evidence of urinary retention with more than 900 mL, discussed with staff to place Leija cath also patient has been off low hemoglobin A1c 6.7%, hypoglycemia highly suspected, as patient was on Actos 15 mg but also she was and to medication which might cause hypoglycemia including Lantus 15 units daily and Amaryl 2 mg. Hold this medication were held on admission and today she did only 2 units of extra insulin. Objective - Vital Signs Vital signs: Vital Signs Temp 97.7 F 11/19/21 11:38 Pulse 68 11/19/21 11:38 Resp 20 11/19/21 11:38 BP 105/52 11/19/21 11:38 Pulse Ox 93 L 11/19/21 11:38 FiO2 Intake & Output 11/18/21 11/19/21 11/19/21 18:59 06:59 18:59 Intake Total 780 362.579 Output Total 1200 3200 Balance -420 -3200 362.579 Weight 104.326 kg Intake: Intake, IV Titration 182.579 Amount DOPamine DRIP 800 mg In 182.579 Dextrose/Water 1 250ml. bag @ 5 MCG/KG/MIN 9.781 mls/hr IV .Q24H [facility] Rx#: [id number] Oral 780 180 Output: Urine 1200 3200 Uretheral (Leija) 1000 Other: Voiding Method Indwelling Catheter Indwelling Catheter # Voids 1 - Exam -GENERAL: The patient is alert and oriented x3, not in any acute distress. Obese HEENT: Pupils are round and equally reacting to light. EOMI. No scleral icterus. No conjunctival pallor. Normocephalic, atraumatic. No pharyngeal erythema. No thyromegaly. CARDIOVASCULAR: S1 and S2 present. No murmurs, rubs, or gallops. PULMONARY: Chest is clear to auscultation, no wheezing or crackles. ABDOMEN: Soft, nontender, nondistended, normoactive bowel sounds. No palpable organomegaly. MUSCULOSKELETAL: No joint swelling or deformity. EXTREMITIES: No cyanosis, clubbing, or pedal edema. NEUROLOGICAL: Gross neurological examination did not reveal any focal deficits. SKIN: No rashes. no petechiae. - Labs CBC & Chem 7: 11/19/21 07:11 11/19/21 07:11 Labs: Abnormal Lab Results - Last 24 Hours (Table) 11/19/21 11/19/21 11/19/21 Range/Units 07:11 07:11 07:11 MCV 101.3 H (80.0-100.0) fL BUN 20 H (7-17) mg/dL Creatinine 1.17 H (0.52-1.04) mg/dL Glucose 147 H (74-99) mg/dL POC Glucose (mg/dL) (70-110) mg/dL Hemoglobin A1c 6.7 H (0.0-6.0) % Magnesium 1.5 L (1.6-2.3) mg/dL 11/19/21 Range/Units 11:34 MCV (80.0-100.0) fL BUN (7-17) mg/dL Creatinine (0.52-1.04) mg/dL Glucose (74-99) mg/dL POC Glucose (mg/dL) 153 H (70-110) mg/dL Hemoglobin A1c (0.0-6.0) % Magnesium (1.6-2.3) mg/dL Assessment and Plan Assessment: Altered mental status, most likely metabolic/toxic encephalopathy. Completely resolved. Suspected multifactorial secondary to urinary retention, hypoglycemia highly suspected syncope with bradycardia. Rule out neurological causes Acute urinary retention Diabetes mellitus with low hemoglobin A1c 6.7%. There might be suspicion of hypoglycemia givent his tight control of glucose in this elderly lady Elevated d-dimer. V/Q scan: Low probability for PE and venous Doppler of the legs is negative for DVT Chronic kidney disease, stage III. Most likely diabetic nephropathy Hypertension Hyperlipidemia Obesity with BMI of 39.5. Plan: This is a pleasant 71 years old female who presents with syncope and bradycardia Continue with telemetry Cardiology consult Continue with Leija catheter, discussed with the staff. Start Flomax Consulting neurologist Continue with the neuro check . discontinue Xanax, Benadryl, hold gabapentin. Hold glimepiride and insulin and continue with insulin sliding scale. Hypoglycemia is suspected. Actos is on hold as well Hold letrozol for her breast cancer Some blood pressure medication lisinopril Check computed tomography scan of the brain Labs and medication were reviewed.. Continue same treatment. Continue with symptomatic treatment. Resume home medication. Monitor lytes and vitals. DVT and GI prophylaxis. Further recommendations as per clinical course of the patient DVT prophylaxis: Subcutaneous heparin (IF CT OF Brain is negative) GI Prophylaxis: Pepcid PT/OT: Pending Prognosis is guarded
--- NOTE | 2021-11-19 13:20 | P.PN ---
Subjective Patient is pleasant 71-year-old female with history of hypertension, hyperlipidemia, diabetes mellitus, neuropathy, breast cancer, GERD, prior GI ble ed, chronic kidney disease, migraines, tremors, elevated troponins however normal coronary arteries by heart catheterization 08/21/2021. She follows with Dr. Lam. We are consulted to see patient for bradycardia. She presents secondary to lethargy and weakness. On admission, patient was fairly somnolent and most of history is supplied by . She has been having issues with lightheadedness and dizzy for months however has been worse in the last 2-3 weeks. Has been complaining of headaches as well as sleepiness. She had presented to [facility] his discharge on 10/30 with what appears to be contaminant blood culture and had elevated troponin with elevated blood pressures. She was increased on her lisinopril and it also been admitted to the hospital for syncopal episode. Additionally 10/17/2021 she had abdominal pain and hallucinations and CT abdomen and pelvis showed no acute process. believes she was previously on metoprolol however this had been stopped. EKG on admission revealed sinus bradycardia with heart rate 42 bpm, left axis deviation, no significant ST-T wave abnormalities.Telemetry on admission revealed sinus bradycardia with heart rates in the upper 30s to 40s. Patient started on IV dopamine at 5mcg/kg/hr. Echo in 05/2021 in the office revealed EF of 6065 %, mild to moderate mitral regurgitation, RVSP of 36 mg of mercury 11/19/2021 Patient seen and examined at bedside, no acute distress. She is more alert this morning. Oriented x 3. Heart rate is improved in sinus mechanism heart rate 50s to 60s. She continues to be on IV dopamine. She is not on any AV zeeshan blocking agents. BP 133/49. Labs: TSH within normal limits. Pulmonary negative 3. PHYSICAL EXAMINATION Vital signs reviewed. CONSTITUTIONAL: No apparent distress, lethargic ill appearing HEENT: Head is normocephalic. No JVD. CHEST EXAMINATION: Lungs are clear to auscultation. No chest wall tenderness is noted on palpation or with deep breathing. HEART EXAMINATION: Regular rate and rhythm. S1, S2 heard. Systolic ejection murmur at the apex ABDOMEN: Soft, nontender. Positive bowel sounds. EXTREMITIES: 2+ peripheral pulses, no lower extremity edema and no calf tenderness. NEUROLOGIC EXAMINATION: Patient is awake somnolent ASSESSMENT Lethargy, altered mental status, recent hallucinations unclear etiology. Questionable metabolic etiology versus metastatic versus neurologic process Significant sinus bradycardia unclear symptomatic or not Near Syncopal episodes at home Hypertension elevated Lightheadedness Diabetes mellitus type 2 Chronic kidney disease Debility PLAN Patient with multiple recent admissions and workup. Patient with lethargy which appears more metabolic however additionally does have significant bradycardia without any significant negative chronotropic status at home. Monitor Heart rates no telemetry and wean off Dopamine drip as tolerated Neurology recommendations appreciated. Further recommendations to follow. Nurse practitioner note has been reviewed by physician. Signing provider agrees with the documented findings, assessment, and plan of care. Objective - Vital Signs Vital signs: Vital Signs Temp 97.7 F 11/19/21 11:38 Pulse 68 11/19/21 11:38 Resp 20 11/19/21 11:38 BP 105/52 11/19/21 11:38 Pulse Ox 93 L 11/19/21 11:38 FiO2 Intake & Output 11/18/21 11/19/21 11/19/21 18:59 06:59 18:59 Intake Total 780 362.579 Output Total 1200 3200 Balance -420 -3200 362.579 Weight 104.326 kg Intake: Intake, IV Titration 182.579 Amount DOPamine DRIP 800 mg In 182.579 Dextrose/Water 1 250ml. bag @ 5 MCG/KG/MIN 9.781 mls/hr IV .Q24H [facility] Rx#: [id number] Oral 780 180 Output: Urine 1200 3200 Uretheral (Leija) 1000 Other: Voiding Method Indwelling Catheter Indwelling Catheter # Voids 1 - Labs CBC & Chem 7: 11/19/21 07:11 11/19/21 07:11 Labs: Abnormal Lab Results - Last 24 Hours (Table) 11/19/21 11/19/21 11/19/21 Range/Units 07:11 07:11 07:11 MCV 101.3 H (80.0-100.0) fL BUN 20 H (7-17) mg/dL Creatinine 1.17 H (0.52-1.04) mg/dL Glucose 147 H (74-99) mg/dL POC Glucose (mg/dL) (70-110) mg/dL Hemoglobin A1c 6.7 H (0.0-6.0) % Magnesium 1.5 L (1.6-2.3) mg/dL 11/19/21 Range/Units 11:34 MCV (80.0-100.0) fL BUN (7-17) mg/dL Creatinine (0.52-1.04) mg/dL Glucose (74-99) mg/dL POC Glucose (mg/dL) 153 H (70-110) mg/dL Hemoglobin A1c (0.0-6.0) % Magnesium (1.6-2.3) mg/dL
[2021-11-19 16:24] LABS: Glucose,Whole Blood 179 mg/dL (70-110)
--- NOTE | 2021-11-19 17:19 | P.PN ---
Subjective Progress Note Date: 11/19/21 I am seeing the patient for the first time. Please refer to Dr. Chaney's note for further details. It seems the patient has recurrent syncopal spells and had work-up by her outpatient neurologist (Dr. Ferreira's team). The patient has been having visual hallucination for the past about 2 weeks and seeing animals, pictures of human on her ceiling in cube shaped. Has been having tremors of uppers for years at rest and with movement. feels having memory loss for past at least one month and not knowing dog's name. She had history of left breast cancer s/p radiation and chemotherapy. Objective - Vital Signs Vital signs: Vital Signs Temp 97.7 F 11/19/21 11:38 Pulse 68 11/19/21 11:38 Resp 20 11/19/21 11:38 BP 105/52 11/19/21 11:38 Pulse Ox 93 L 11/19/21 11:38 FiO2 Intake & Output 11/18/21 11/19/21 11/19/21 18:59 06:59 18:59 Intake Total 780 542.579 Output Total 1200 3200 Balance -420 -3200 542.579 Weight 104.326 kg Intake: Intake, IV Titration 182.579 Amount DOPamine DRIP 800 mg In 182.579 Dextrose/Water 1 250ml. bag @ 5 MCG/KG/MIN 9.781 mls/hr IV .Q24H [facility] Rx#: [id number] Oral 780 360 Output: Urine 1200 3200 Uretheral (Leija) 1000 Other: Voiding Method Indwelling Catheter Indwelling Catheter # Voids 1 - Exam GENERAL: The patient is lying in bed and is not in acute distress. NEUROLOGICAL: Higher mental function: The patient is awake, alert, oriented to self, place and time. Patient is following commands. No aphasia and no neglect. Cranial nerves: The pupils are round, equal and reactive to light. Extraocular movement is limited horizontal gaze. Facial sensation is normal to touch throughout. The facial strength is normal throughout. Tongue is midline and moved [id number] without any difficulty. No dysarthria is noted. Shoulder shrug is normal bilaterally. Motor: The strength is individual strength is limited but lifting bilateral uppers and lowers above gravity. Normal tone and bulk. No tremors. Cerebellum: Normal finger to nose bilaterally. Sensation: Sensation is normal to touch throughout. - Labs CBC & Chem 7: 11/19/21 07:11 11/19/21 07:11 Labs: Abnormal Lab Results - Last 24 Hours (Table) 11/19/21 11/19/21 11/19/21 Range/Units 07:11 07:11 07:11 MCV 101.3 H (80.0-100.0) fL BUN 20 H (7-17) mg/dL Creatinine 1.17 H (0.52-1.04) mg/dL Glucose 147 H (74-99) mg/dL POC Glucose (mg/dL) (70-110) mg/dL Hemoglobin A1c 6.7 H (0.0-6.0) % Magnesium 1.5 L (1.6-2.3) mg/dL 11/19/21 Range/Units 11:34 MCV (80.0-100.0) fL BUN (7-17) mg/dL Creatinine (0.52-1.04) mg/dL Glucose (74-99) mg/dL POC Glucose (mg/dL) 153 H (70-110) mg/dL Hemoglobin A1c (0.0-6.0) % Magnesium (1.6-2.3) mg/dL Assessment and Plan Assessment: * Recurrent near syncopal spells 4 (once in September, 3 in October), possibly orthostatic versus vasovagal. All of these spells occurred while patient was standing up on her feet. * Visual hallucination for past at least two weeks, tremors for years, and memory loss for past one month: Rule out any neurodegerative disease. * History of left breast cancer post radiation and chemotherapy. * Hypertension * Hyperlipidemia * Diabetes * Osteoarthritis * Chronic renal insufficiency * Macrocytosis Plan: * Check orthostatics. Consider tilt table test. * Dr. Chaney recommended EEG, carotid Doppler, and a 2-D echo. Patient states that she had an EEG already performed at Dr. Álvarez office last week, the results are pending. She had carotid Doppler and echo performed at [facility] recently with these near syncopal spells. Patient did not want to repeat these testing. We will try to obtain results for our review and I personally called concierge receptionist to try of obtaining records. But stated is willing to go for repeat EEG and will like to pursue with MRI Brain as inpatient as well. Her agrees with that. * Folate >20; TSH is normal 2.47; Hemoglobin A1c: 6.7 * Patient is already scheduled for an MRI of the brain, ENG, MRI of the lumbar spine, VAT and MEAGAN at Dr. Álvarez office next week. * Continue aspirin 81 mg and Lipitor 10 mg. * Will defer the rest of medical management to the primary team. The plan is discussed with patient, her (who is at bedside) and her nurse. Yuan Styles M.D. Neuro-Hospitalist Time with Patient: Less than 30
[2021-11-19 19:39] LABS: Glucose,Whole Blood 168 mg/dL (70-110)
[2021-11-19] MEDS: lisinopriL 5 MG TAB PO SCH (20:27)
[2021-11-19] MEDS: ATORVASTATIN 10 MG TAB PO SCH (20:27)
[2021-11-20 06:02] LABS: Glucose,Whole Blood 126 mg/dL (70-110)
[2021-11-20] MEDS: INSULIN ASPART (NovoLOG) 100 UNIT/ML VIAL SQ SCH ×5 (06:03→21:50)
[2021-11-20] MEDS: PANTOPRAZOLE 40 MG TABLET PO SCH (06:24)
[2021-11-20] MEDS: SODIUM CHLORIDE 0.9% 1,000 ML IV SCH ×2 (06:24→20:10)
--- NOTE | 2021-11-20 11:07 | P.PN ---
Subjective Patient is pleasant 71-year-old female with history of hypertension, hyperlipidemia, diabetes mellitus, neuropathy, breast cancer, GERD, prior GI ble ed, chronic kidney disease, migraines, tremors, elevated troponins however normal coronary arteries by heart catheterization 08/21/2021. She follows with Dr. Lam. We are consulted to see patient for bradycardia. She presents secondary to lethargy and weakness. On admission, patient was fairly somnolent and most of history is supplied by . She has been having issues with lightheadedness and dizzy for months however has been worse in the last 2-3 weeks. Has been complaining of headaches as well as sleepiness. She had presented to [facility] his discharge on 10/30 with what appears to be contaminant blood culture and had elevated troponin with elevated blood pressures. She was increased on her lisinopril and it also been admitted to the hospital for syncopal episode. Additionally 10/17/2021 she had abdominal pain and hallucinations and CT abdomen and pelvis showed no acute process. believes she was previously on metoprolol however this had been stopped. EKG on admission revealed sinus bradycardia with heart rate 42 bpm, left axis deviation, no significant ST-T wave abnormalities.Telemetry on admission revealed sinus bradycardia with heart rates in the upper 30s to 40s. Patient started on IV dopamine at 5mcg/kg/hr. Echo in 05/2021 in the office revealed EF of 6065 %, mild to moderate mitral regurgitation, RVSP of 36 mmHg 11/20/2021 Patient seen and examined at bedside, no acute distress. She is more alert this morning. Oriented x 3. Heart rate is improved in sinus mechanism heart rate 60s. She continues to be on IV dopamine, decreased to 2mcg/kg/min. She is not on any AV zeeshan blocking agents. BP 135/67 Labs: TSH within normal limits. Troponin negative 3. Mag 1.6. PHYSICAL EXAMINATION Vital signs reviewed. CONSTITUTIONAL: No apparent distress, lethargic ill appearing HEENT: Head is normocephalic. No JVD. CHEST EXAMINATION: Lungs are clear to auscultation. No chest wall tenderness is noted on palpation or with deep breathing. HEART EXAMINATION: Regular rate and rhythm. S1, S2 heard. Systolic ejection murmur at the apex ABDOMEN: Soft, nontender. Positive bowel sounds. EXTREMITIES: 2+ peripheral pulses, no lower extremity edema and no calf tenderness. NEUROLOGIC EXAMINATION: Patient is awake somnolent ASSESSMENT Lethargy, altered mental status, recent hallucinations unclear etiology. Ques tionable metabolic etiology versus metastatic versus neurologic process Significant sinus bradycardia, symptomatic, HR have improved Near Syncopal episodes at home Hypertension elevated Lightheadedness Diabetes mellitus type 2 Chronic kidney disease Debility PLAN Patient is maintaining sinus rhythm HR 60s, Stop Dopamine drip Monitor Heart rates on telemetry Further recommendations to follow. Nurse practitioner note has been reviewed by physician. Signing provider agrees with the documented findings, assessment, and plan of care. Objective - Vital Signs Vital signs: Vital Signs Temp 98.1 F 11/20/21 04:00 Pulse 72 11/20/21 04:00 Resp 12 11/20/21 04:00 BP 135/67 11/20/21 04:00 Pulse Ox 94 L 11/20/21 04:00 FiO2 Intake & Output 11/19/21 11/20/21 11/20/21 18:59 06:59 18:59 Intake Total 978.139 Output Total 650 1300 1800 Balance 328.139 -1300 -1800 Intake: Intake, IV Titration 438.139 Amount DOPamine DRIP 800 mg In 55.56 Dextrose/Water 1 250ml. bag @ 2 MCG/KG/MIN 3.912 mls/hr IV .Q24H [facility] Rx#: [id number] DOPamine DRIP 800 mg In 182.579 Dextrose/Water 1 250ml. bag @ 5 MCG/KG/MIN 9.781 mls/hr IV .Q24H [facility] Rx#: [id number] Magnesium Sulfate-D5w Pmx 200 1 gm In Dextrose/Water 1 100ml.bag @ 100 mls/hr IVPB Q1H [facility] Rx#: [id number] Oral 540 Output: Urine 650 1300 1800 Other: Voiding Method Indwelling Catheter Indwelling Catheter - Labs CBC & Chem 7: 11/19/21 07:11 11/19/21 07:11 Labs: Abnormal Lab Results - Last 24 Hours (Table) 11/19/21 11/19/21 11/19/21 Range/Units 11:34 16:22 19:37 POC Glucose (mg/dL) 153 H 179 H 168 H (70-110) mg/dL 11/20/21 Range/Units 06:00 POC Glucose (mg/dL) 126 H (70-110) mg/dL
[2021-11-20] MEDS: TAMSULOSIN 0.4 MG CAP.ER.24H PO SCH (11:08)
[2021-11-20] MEDS: ASPIRIN 81 MG PO SCH (11:08)
[2021-11-20] MEDS: MAGNESIUM SULFATE-D5W PMX 1 GM in DEXTROSE/WATER 1 100ML.BAG IVPB SCH ×2 (11:08→15:34)
[2021-11-20] MEDS: HEPARIN SODIUM,PORCINE/PF 5,000 UNIT/0.5 ML SYRINGE SQ SCH ×2 (11:08→22:05)
[2021-11-20] MEDS: allopurinoL 100 MG TAB PO SCH (11:09)
[2021-11-20 11:36] LABS: Glucose,Whole Blood 216 mg/dL (70-110)
--- NOTE | 2021-11-20 11:46 | CA ---
Transthoracic Echo Report Name: Elizabeth Hamilton Age: 71 Gender: F : 1950 Exam Date: 11/20/2021 09:57 Exam Location: [facility] Ht (in): 64 Wt (lb): 230 Ordering Physician: Nerissa Alvarado Attending/Referring Phys: Say Kuhn MD Formula Weigher Jena Swann RDCS Procedure CPT: Indications: Bradycardia Cardiac Hx: Technical Quality: Technically difficult study Contrast 1: Lumason Total Dose (mL): 1 Contrast 2: Total Dose (mL): MEASUREMENTS (Male / Female) Normal Values 2D ECHO LV Diastolic Diameter PLAX 3.9 cm 4.2 - 5.9 / 3.9 - 5.3 cm LV Systolic Diameter PLAX 2.2 cm IVS Diastolic Thickness 1.0 cm 0.6 - 1.0 / 0.6 - 0.9 cm LVPW Diastolic Thickness 1.2 cm 0.6 - 1.0 / 0.6 - 0.9 cm LV Relative Wall Thickness 0.6 RV Internal Dim ED PLAX 2.7 cm M-MODE Aortic Root Diameter MM 3.3 cm LA Systolic Diameter MM 3.4 cm LA Ao Ratio MM 1.0 MV E Point Septal Separation 1.2 cm AV Cusp Separation MM 2.1 cm DOPPLER AV Peak Velocity 254.4 cm/s AV Peak Gradient 25.9 mmHg MV Area PHT 3.7 cm??? MR Peak Velocity 199.1 cm/s MR Peak Gradient 15.9 mmHg Mitral E Point Velocity 96.1 cm/s Mitral A Point Velocity 122.5 cm/s Mitral E to A Ratio 0.8 MV Deceleration Time 207.8 ms TR Peak Velocity 241.4 cm/s TR Peak Gradient 23.3 mmHg Right Ventricular Systolic Press 28.3 mmHg FINDINGS Left Ventricle Mildly increased septal wall thickness. Mildly increased posterior wall thickness. Left ventricular ejection fraction is estimated at 55-60_ %. Left ventricular cavity size normal. Right Ventricle The right ventricle is normal in size and function. Right Atrium The right atrium is normal in size. Left Atrium The left atrium is normal in size. Mitral Valve Structurally normal mitral valve without significant stenosis or prolapse. There is mild mitral regurgitation. Aortic Valve Structurally normal aortic valve without significant sclerosis or stenosis. There is no aortic regurgitation. Tricuspid Valve Structurally normal tricuspid valve without significant stenosis. Pulmonary artery systolic pressure is normal. Mild tricuspid regurgitation. Pulmonic Valve Structurally normal pulmonic valve without significant stenosis. There is no pulmonic regurgitation. Pericardium Normal pericardium without effusion. Aorta Normal aortic root dimension. CONCLUSIONS Increased LV mass with preserved systolic function Previewed by: Dr. Ezio Lam MD (Electronically Signed) Final Date: 20 November 2021 11:44
--- NOTE | 2021-11-20 14:40 | MR ---
EXAMINATION TYPE: MR brain wo/w con DATE OF EXAM: 11/20/2021 COMPARISON: CT brain 11/18/2021 HISTORY: visual hallucination. hx of breast cancer. TECHNIQUE: Multiplanar, multisequence images of the brain and brainstem is performed without and with IV contras t, utilizing 10 mL intravenous Gadavist . FINDINGS: Postcontrast motion limits evaluation. Diffusion weighted images demonstrate no evidence of a recent infarct or other diffusion abnormality. There is no extra-axial fluid. There is scattered white diana er changes in the periventricular and deep white matter considered by high T2 signals. The ventricul ar system and cisternal spaces are prominent in size and appearance. The brain volume is age appropr iate. Midline structures demonstrate normal morphology. The craniocervical junction appears within normal limits. Post contrast images demonstrate no abnormal enhancement. The dural venous sinuses appear pa tent. The visualized sinuses are clear and the globes are intact. IMPRESSION: 1. No evidence for acute intracranial process. 2. No evidence for abnormal intracranial postcontrast enhancement to suggest metastatic disease. 3. Nonspecific white matter changes. 4. Prominent ventricular system favored to be age related.
[2021-11-20 16:21] LABS: Glucose,Whole Blood 218 mg/dL (70-110)
--- NOTE | 2021-11-20 16:36 | P.PN ---
Subjective Progress Note Date: 11/20/21 The patient is seen at bedside and is about the same. Per the nurse, she has been notifying her that she does have hallucination but is aware of those episodes while she is having them. Otherwise nothing new. Per the patient's nurse she had positive orthostatic vital. Per the patient's who is at bedside he feels she is about the same. Objective - Vital Signs Vital signs: Vital Signs Temp 98.4 F 11/20/21 08:00 Pulse 69 11/20/21 08:00 Resp 18 11/20/21 08:00 BP 135/63 11/20/21 08:00 Pulse Ox 96 11/20/21 08:00 FiO2 Intake & Output 11/19/21 11/20/21 11/20/21 18:59 06:59 18:59 Intake Total 978.139 Output Total 650 1300 1800 Balance 328.139 -1300 -1800 Intake: Intake, IV Titration 438.139 Amount DOPamine DRIP 800 mg In 55.56 Dextrose/Water 1 250ml. bag @ 2 MCG/KG/MIN 3.912 mls/hr IV .Q24H COLTEN Rx#: [id number] DOPamine DRIP 800 mg In 182.579 Dextrose/Water 1 250ml. bag @ 5 MCG/KG/MIN 9.781 mls/hr IV .Q24H COLTEN Rx#: [id number] Magnesium Sulfate-D5w Pmx 200 1 gm In Dextrose/Water 1 100ml.bag @ 100 mls/hr IVPB Q1H COLTEN Rx#: [id number] Oral 540 Output: Urine 650 1300 1800 Other: Voiding Method Indwelling Catheter Indwelling Catheter Indwelling Catheter - Exam GENERAL: The patient is lying in bed and is not in acute distress. NEUROLOGICAL: Higher mental function: The patient is awake, alert, oriented to self, place and time. Patient is following commands. No aphasia and no neglect. Cranial nerves: The pupils are round, equal and reactive to light. Extraocular movement is limited horizontal gaze but at time is able to look to right and left but needed time and was able to do it after couple tries. Facial sensation is normal to touch throughout. The facial strength is normal throughout. Tongue is midline and moved [id number] without any difficulty. No dysarthria is noted. Shoulder shrug is normal bilaterally. Motor: The strength is individual strength is limited but lifting bilateral uppers and lowers above gravity. Normal tone and bulk. No resting or end of action tremors. Cerebellum: Normal finger to nose bilaterally. Sensation: Sensation is normal to touch throughout. SOME OF THE WORK-UP DURING THIS HOSPITAL VISIT: Orthostatic vitals is supine blood pressure of 129/72 the, sitting is 101/62 and standing is of 86/53. Her orthostatic is positive Folate >20; TSH is normal 2.47; Hemoglobin A1c: 6.7 MRI of the brain is reported as no evidence for acute intracranial processes. No evidence for abnormal intracranial postcontrast enhancement suggest metastatic disease. Nonspecific white matter changes. Prominent ventricular system fever to be age-related. I personally reviewed the MRI and I agree there is no acute subacute ischemia there is no enhancing lesion. 2-D echo was reported as increased left ventricular mass with preserved systolic function. Ejection fraction 55-60%. I looked at the body they reported and there is no mention of a mass. Will ask Cardiology to verify of the report. - Labs CBC & Chem 7: 11/19/21 07:11 11/19/21 07:11 Labs: Abnormal Lab Results - Last 24 Hours (Table) 11/19/21 11/20/21 11/20/21 Range/Units 19:37 06:00 11:34 POC Glucose (mg/dL) 168 H 126 H 216 H (70-110) mg/dL 11/20/21 Range/Units 16:19 POC Glucose (mg/dL) 218 H (70-110) mg/dL Microbiology - Last 24 Hours (Table) 11/19/21 12:35 Blood Culture - Preliminary Blood No Growth after 24 hours Assessment and Plan Assessment: * Recurrent near syncopal spells 4 (once in September, 3 in October), Due to positive orthostatic versus vasovagal. All of these spells occurred while patient was standing up on her feet. * Visual hallucination for past at least two weeks, and memory loss for past one month: MRI Brain is negative for stroke or enhancing mass. Rule out any neurodegerative disease: Such as Lewy Body Dementia. * Positive orthostatic hypotension * History of left breast cancer post radiation and chemotherapy. * Hypertension * Hyperlipidemia * Diabetes * Osteoarthritis * Chronic renal insufficiency * Macrocytosis Plan: * Patient states that she had an EEG already performed at Dr. Álvarez office last week, the results are pending. She had carotid Doppler and echo performed at [facility] recently with these near syncopal spells. Pending report to be faxed over. * She did not want to repeat carotid duplex. She agreed on repeat EEG which was completed and preliminary no seizures noted. Consider prolonged ambulatory EEG as outpatient to rule out seizure. * Patient is already scheduled for an ENG, MRI of the lumbar spine, VAT and MEAGAN at Dr. Álvarez office. * Regarding orthostatic hypotension recommend compression stocking and if ineffective salt tab 1gm bid. Will defer final management to cardiology and primary team. * From neurological perspective patient does not have stroke for antiplatelets or statin use and will defer that to primary team. * Will defer the rest of medical management to the primary team. If no events by tomorrow then patient is clear for discharge from neurological perspective. The plan is discussed with patient and her nurse. Yuan Styles M.D. Neuro-Hospitalist Time with Patient: Less than 30
[2021-11-20 20:20] LABS: Glucose,Whole Blood 147 mg/dL (70-110)
[2021-11-20] MEDS: lisinopriL 5 MG TAB PO SCH (22:06)
[2021-11-20] MEDS: ATORVASTATIN 10 MG TAB PO SCH (22:07)
--- NOTE | 2021-11-20 23:56 | P.PN ---
Subjective Progress Note Date: 11/20/21 This is a 71 year old female who presents with bradycardia and syncope. Today she is alert and oriented x 3. Dopamine gtt has been discontinued. Brain MRI has been completed with no acute intracranial process, no metastatic disease noted. There is nonspecific white matter changes. She has ongoing outpatient work up with her neurologist Dr Bliss, she recently had EEG done which was repeated here and negative for seizure activity. 2 D Echocardiogram completed showing EF 55 to 60% with mildly increased septal wall thickness. Magnesium today 1.6, patient was given 2 grams of IV magnesium. Most recent orthos are positive. Blood pressure is on the lower side today in the low 100s to 90s systolic. She is sinus rhythm maintaining a heart rate in the 60s. PT eval completed today, home care vs. subacute rehab. Review of Systems Constitutional: Denied any fatigue denied any fever. Cardio vascular: denied any chest pain, palpitations Gastrointestinal: denied any nausea, vomiting, diarrhea Pulmonary: Denied any shortness of breath cough Neurologic denied any new focal deficits All inpatient medications were reviewed and appropriate changes in these medications as dictated in the interval history and assessment and plan. PHYSICAL EXAMINATION: GENERAL: The patient is alert and oriented x3, not in any acute distress. Well developed, well nourished. HEENT: Pupils are round and equally reacting to light. EOMI. No scleral icterus. No conjunctival pallor. Normocephalic, atraumatic. No pharyngeal erythema. No thyromegaly. CARDIOVASCULAR: S1 and S2 present. No murmurs, rubs, or gallops. PULMONARY: Chest is clear to auscultation, no wheezing or crackles. ABDOMEN: Soft, nontender, nondistended, normoactive bowel sounds. No palpable organomegaly. MUSCULOSKELETAL: No joint swelling or deformity. EXTREMITIES: No cyanosis, clubbing, or pedal edema. NEUROLOGICAL: Gross neurological examination did not reveal any focal deficits. SKIN: No rashes. Assessment and Plan Assessment Altered mental status, most likely metabolic/toxic encephalopathy possibly from urinary retention and hypoglycemia, resolved Visual hallucinations with recent reports of memory loss ongoing work up Syncope with bradycardia. Rule out neurological causes Acute urinary retention Diabetes mellitus with low hemoglobin A1c 6.7%. Elevated d-dimer. V/Q scan: Low probability for PE and venous Doppler of the l egs is negative for DVT Chronic kidney disease, stage III. Most likely diabetic nephropathy Hypertension Hyperlipidemia History left breastcancer post chemoradiation Obesity with BMI of 39.5. GI Prophylaxis DVT Prophylaxis Full Code Plan Continue with orthostatic blood pressure monitoring Qshift Compression stockings bilateral Continue with Leija catheter, continue on flomax Neurology, cardiology consultation Xanax, benadryl and gabapentin are on hold Actos and Glimiperide on hold Hold letrozol for her breast cancer Repeat labs in AM Possibly DC in 24 to 48 hours Continue outpatient work up with neurology The impression and plan of care has been dictated by Shelley Yang, Nurse Practitioner as directed. Dr. Davis MD I have performed a history and physical examination and medical decision making of this patient, discussed the same with the dictator, and agree with the dictators assessment and plan as written, documented as a scribe. Based on total visit time, I have performed more than 50% of this visit. Objective - Vital Signs Vital signs: Vital Signs Temp 98.4 F 11/20/21 08:00 Pulse 69 11/20/21 08:00 Resp 18 11/20/21 08:00 BP 135/63 11/20/21 08:00 Pulse Ox 96 11/20/21 08:00 FiO2 Intake & Output 11/19/21 11/20/21 11/20/21 18:59 06:59 18:59 Intake Total 978.139 Output Total 650 1300 1800 Balance 328.139 -1300 -1800 Intake: Intake, IV Titration 438.139 Amount DOPamine DRIP 800 mg In 55.56 Dextrose/Water 1 250ml. bag @ 2 MCG/KG/MIN 3.912 mls/hr IV .Q24H COLTEN Rx#: [id number] DOPamine DRIP 800 mg In 182.579 Dextrose/Water 1 250ml. bag @ 5 MCG/KG/MIN 9.781 mls/hr IV .Q24H COLTEN Rx#: [id number] Magnesium Sulfate-D5w Pmx 200 1 gm In Dextrose/Water 1 100ml.bag @ 100 mls/hr IVPB Q1H COLTEN Rx#: [id number] Oral 540 Output: Urine 650 1300 1800 Other: Voiding Method Indwelling Catheter Indwelling Catheter Indwelling Catheter - Labs CBC & Chem 7: 11/19/21 07:11 11/19/21 07:11 Labs: Abnormal Lab Results - Last 24 Hours (Table) 11/19/21 11/19/21 11/20/21 Range/Units 16:22 19:37 06:00 POC Glucose (mg/dL) 179 H 168 H 126 H (70-110) mg/dL 11/20/21 Range/Units 11:34 POC Glucose (mg/dL) 216 H (70-110) mg/dL Microbiology - Last 24 Hours (Table) 11/19/21 12:35 Blood Culture - Preliminary Blood No Growth after 24 hours Assessment and Plan Time with Patient: Less than 30
--- NOTE | 2021-11-21 00:25 | EEG ---
ELECTROENCEPHALOGRAM REPORT CLINICAL HISTORY: This is a 71-year-old woman with visual hallucination. The video EEG is obtained to evaluate for seizure and epileptiform activity. RELEVANT MEDICATION: The patient is not on any antiepileptic drugs. EEG TYPE: A routine 21-channel EEG is performed with video using the 10/20 electrode placement system. DESCRIPTION: Wakefulness is only obtained. During awake state, the posterior-dominant rhythm consists of [id number]-fb-[id number] voltage of 8 to 8.5 Hz activity. There is no physiological sleep architecture. There is no focal slowing. INTERICTAL AND ICTAL: None. ACTIVATION PROCEDURE: Photic stimulation did not evoke a posterior driving response. There is no abnormality during the photic stimulation. Hyperventilation is not performed. CLINICAL INTERPRETATION: This is a normal routine EEG. There is no focal slowing, epileptiform discharges, or seizure on the EEG. Clinical correlation is recommended. SARAH / JOHNY: [id number] /
[2021-11-21 06:10] LABS: Glucose,Whole Blood 148 mg/dL (70-110)
[2021-11-21] MEDS: INSULIN ASPART (NovoLOG) 100 UNIT/ML VIAL SQ SCH ×2 (06:11→13:39)
[2021-11-21] MEDS: SODIUM CHLORIDE 0.9% 1,000 ML IV SCH (06:11)
[2021-11-21] MEDS: PANTOPRAZOLE 40 MG TABLET PO SCH (06:24)
[2021-11-21 08:47] LABS: Basophils % (A) 0 %; Eosinophils % (A) 1 %; HGB 10.1 gm/dL (11.4-16.0); Lymphocytes # (A) 2.2 k/uL (1.0-4.8); Lymphocytes % (A) 28 %; MCH 32.7 pg (25.0-35.0); MCHC 32.6 g/dL (31.0-37.0); MCV 100.3 fL (80.0-100.0); Macrocytosis Slight; Mean Platelet Volume 8.8; Monocytes # (A) 0.5 k/uL (0-1.0); Monocytes % (A) 7 %; Neutrophils % (A) 63 %; Platelet Count 215 k/uL (150-450); RBC 3.09 m/uL (3.80-5.40); RDW 15.3 % (11.5-15.5); WBC 7.9 k/uL (3.8-10.6)
[2021-11-21 09:03] LABS: Calcium 8.8 mg/dL (8.4-10.2); Magnesium 1.7 mg/dL (1.6-2.3); Potassium 3.7 mmol/L (3.5-5.1)
[2021-11-21] MEDS: allopurinoL 100 MG TAB PO SCH (09:07)
[2021-11-21] MEDS: TAMSULOSIN 0.4 MG CAP.ER.24H PO SCH (09:07)
[2021-11-21] MEDS: ASPIRIN 81 MG PO SCH (09:07)
[2021-11-21] MEDS: HEPARIN SODIUM,PORCINE/PF 5,000 UNIT/0.5 ML SYRINGE SQ SCH (09:07)
--- NOTE | 2021-11-21 09:53 | CDI ---
Documentation Clarification Form Date: 11/21/2021 09:37:50 AM From: Jess FordAgarwalJOSE mcfarlane, CCDS Admit Date: 11/18/2021 06:10:00 AM Patient Name: Elizabeth Hamilton Visit Number: [id number] Discharge Date: ATTENTION: The Clinical Documentation Specialists (CDI) and [facility] Coding Staff appreciate your assistance in clarifying documentation. Please respond to the clarification below the line at the bottom and electronically sign. The CDI & [facility] Coding staff will review the response and follow-up if needed. Please note: Queries are made part of the Legal Health Record. If you have any questions, please contact the author of this message via ITS. Dr. Janeth Cannon: Hypoglycemia is documented in the Attending Physician 11/19 & 11/20 Progress Notes with history of Diabetes Mellitus and elevated Blood Glucose levels on admission. Additional clarification of specificity of Diabetes is requested. History/Risk Factors per the 11/18 H/P: Asthma, Left Breast Cancer status post Chemotherapy & Radiation, Diabetes Mellitus, GERD, GI Bleed, Hyperlipidemia, Hypertension, Osteoarthritis, CKD stage 3, Migraines, Gout, Skin cancer, Psoriasis status post chemo/radiation, Occasional hand & mouth tremors, C Diff infection. Clinical Indicators: Presented to the ED on 11/18 via EMS with Syncope. Admit with Dehydration, Syncope, Bradycardia and Weakness. 11/18 VS: T 97.4, P 50, R 18, BP 147/50, PO 96 RA, BMI: 39.5 11/18 LAB: RBC 3.70, MCV 102.2; APTT 21.5, D Dimer 2.11, BUN 24, Creatinine 1.37, Magnesium 1.4 11/19 Hemoglobin A1c: 6.7 11/18 Glucose: 222 11/19 Glucose 147. POC Glucose 153, 179, 168 11/20 POC Glucose 126, 216, 218,147 11/21 Glucose 184. POC Glucose 148 Treatment 11/18: Bladder Scan, Telemetry, Neurological Assessment, Leija catheter, IV Na Chl 1,000 mls @ 999 mls/hr q1H, IV Mag Sulfate 100 mls @ 20 mls/hr q1H, IV Protonix 40 mg Daily, IV Dopamine HCI/Dextrose 800 mg 250 mls @ 9.781 mls/hr q24H, Heparin 5,000 sq q12H. Can you please clarify the following: [ ] Diabetes mellitus with Hypoglycemia [x ] Diabetes mellitus with Hyperglycemia [ ] Other, please specify: [ ] Unable to determine (Template Last Revised: June 2020) MTDD
[2021-11-21 10:18] VITALS: RESP 18; TEMP 98.3
[2021-11-21 11:52] LABS: Glucose,Whole Blood 154 mg/dL (70-110)
--- NOTE | 2021-11-21 12:15 | P.PN ---
Subjective Patient is pleasant 71-year-old female with history of hypertension, hyperlipidemia, diabetes mellitus, neuropathy, breast cancer, GERD, prior GI ble ed, chronic kidney disease, migraines, tremors, elevated troponins however normal coronary arteries by heart catheterization 08/21/2021. She follows with Dr. Lam. We are consulted to see patient for bradycardia. She presents secondary to lethargy and weakness. On admission, patient was fairly somnolent and most of history is supplied by . She has been having issues with lightheadedness and dizzy for months however has been worse in the last 2-3 weeks. Has been complaining of headaches as well as sleepiness. She had presented to [facility] his discharge on 10/30 with what appears to be contaminant blood culture and had elevated troponin with elevated blood pressures. She was increased on her lisinopril and it also been admitted to the hospital for syncopal episode. Additionally 10/17/2021 she had abdominal pain and hallucinations and CT abdomen and pelvis showed no acute process. believes she was previously on metoprolol however this had been stopped. EKG on admission revealed sinus bradycardia with heart rate 42 bpm, left axis deviation, no significant ST-T wave abnormalities.Telemetry on admission revealed sinus bradycardia with heart rates in the upper 30s to 40s. Patient started on IV dopamine at 5mcg/kg/hr. Echo in 05/2021 in the office revealed EF of 6065 %, mild to moderate mitral regurgitation, RVSP of 36 mmHg 11/21/2021 Patient seen and examined at bedside, no acute distress. She is more alert this morning. Oriented x 3. Heart rate is improved in sinus mechanism heart rate 60s-low 100s this morning. Her dopamine was discontinued yesterday morning. She is not on any AV zeeshan blocking agents. BP 188/68, Lisinopril restarted Labs: TSH within normal limits. Troponin negative 3. Sodium 1:30, potassium 3.7, BUN 29, serum creatinine 1.38, magnesium 1.7 PHYSICAL EXAMINATION Vital signs reviewed. CONSTITUTIONAL: No apparent distress, lethargic ill appearing HEENT: Head is normocephalic. No JVD. CHEST EXAMINATION: Lungs are clear to auscultation. No chest wall tenderness is noted on palpation or with deep breathing. HEART EXAMINATION: Regular rate and rhythm. S1, S2 heard. Systolic ejection murmur at the apex ABDOMEN: Soft, nontender. Positive bowel sounds. EXTREMITIES: 2+ peripheral pulses, no lower extremity edema and no calf tenderness. NEUROLOGIC EXAMINATION: Patient is awake somnolent ASSESSMENT Lethargy, altered mental status, recent hallucinations unclear etiology. Questionable metabolic etiology versus metastatic versus neurologic process Significant sinus bradycardia, symptomatic, HR have improved Near Syncopal episodes at home Hypertension elevated Lightheadedness Diabetes mellitus type 2 Chronic kidney disease Debility PLAN Patient is maintaining sinus rhythm HR 60s-90s/low 100s. No indication for pacemaker at this time. Recommend close follow up in the office with Dr. Lam Continue home Lisinopril From a cardiology perspective, patient is stable to be discharged when cleared by primary and other consultants. Nurse practitioner note has been reviewed by physician. Signing provider agrees with the documented findings, assessment, and plan of care. Objective - Vital Signs Vital signs: Vital Signs Temp 98.3 F 11/21/21 08:00 Pulse 97 11/21/21 08:00 Resp 18 11/21/21 08:00 BP 188/68 11/21/21 08:00 Pulse Ox 97 11/21/21 08:00 FiO2 Intake & Output 11/20/21 11/21/21 11/21/21 18:59 06:59 18:59 Intake Total 240 180 Output Total 2200 Balance -2200 240 180 Intake: Oral 240 180 Output: Urine 2200 Other: Voiding Method Indwelling Catheter Indwelling Catheter Indwelling Catheter # Voids 5 # Bowel Movements 6 - Labs CBC & Chem 7: 11/21/21 08:32 11/21/21 08:32 Labs: Abnormal Lab Results - Last 24 Hours (Table) 11/20/21 11/20/21 11/21/21 Range/Units 16:19 20:18 06:09 RBC (3.80-5.40) m/uL Hgb (11.4-16.0) gm/dL Hct (34.0-46.0) % MCV (80.0-100.0) fL Sodium (137-145) mmol/L Carbon Dioxide (22-30) mmol/L BUN (7-17) mg/dL Creatinine (0.52-1.04) mg/dL Glucose (74-99) mg/dL POC Glucose (mg/dL) 218 H 147 H 148 H (70-110) mg/dL 11/21/21 11/21/21 11/21/21 Range/Units 08:32 08:32 11:51 RBC 3.09 L (3.80-5.40) m/uL Hgb 10.1 L (11.4-16.0) gm/dL Hct 31.0 L (34.0-46.0) % MCV 100.3 H (80.0-100.0) fL Sodium 135 L (137-145) mmol/L Carbon Dioxide 21 L (22-30) mmol/L BUN 29 H (7-17) mg/dL Creatinine 1.38 H (0.52-1.04) mg/dL Glucose 184 H (74-99) mg/dL POC Glucose (mg/dL) 154 H (70-110) mg/dL Microbiology - Last 24 Hours (Table) 11/19/21 12:35 Blood Culture - Preliminary Blood No Growth after 24 hours
--- NOTE | 2021-11-21 13:34 | P.DS ---
Providers Date of admission: 11/18/21 06:10 Attending physician: Sammie Weber Consults: 11/18/21 06:10 Consult Physician Routine Consulting Provider: Phil Richard Consult Reason/Comments: catalino Do you want consulting provider notified?: Yes 11/18/21 09:05 Consult Physician Urgent Consulting Provider: Raymon Chaney Consult Reason/Comments: AMS Do you want consulting provider notified?: Yes Primary care physician: Jack Humphrey [facility] Course: Diagnosis Altered mental status, most likely metabolic/toxic encephalopathy possibly from urinary retention, and possible hypoglycemic episodes at home. Visual hallucinations with recent reports of memory loss ongoing work up to rule out neurodegenerative disease Syncope with bradycardia, patient also has positive orthostatic hypotension. Rule out neurological causes, cardiology has resumed lisinopril will follow up with patient in the office Acute urinary retention Diabetes mellitus, controlled Elevated d-dimer. V/Q scan: Low probability for PE and venous Doppler of the legs is negative for DVT Chronic kidney disease, stage III. Most likely diabetic nephropathy Hypertension Hyperlipidemia History left breastcancer post chemoradiation Obesity with BMI of 39.5. Full Code Discharge Disposition Patient stable for discharge to subacute rehab. Continue to hold gabapentin and Xanax on discharge. We will start patient on low-dose Seroquel at bedtime. Ongoing workup with Dr. Ferreira patient has a follow up appointment on December 13. Patient has been resumed on home dose lisinopril. Follow up with cardiology, nephrology on discharge. Recommend to monitor blood glucose, blood pressure. Continue with bilateral lower extremity compression stockings. Indwelling catheter discontinued. Hospital Course This is a pleasant 71 years old female with past medical history of hypertension, hyperlipidemia, diabetes mellitus. Patient lives at home with who has been assisting patient with activity. She has been weak and has fallen at home. Family reports that she has been hallucinating and this has been ongoing for the last few weeks. Also patient reports dizziness when ambulating. She is on 2 oral diabetic agents which can cause hypoglycemia, also on gabapentin, xanax, and benadryl. Family was concerned for stroke and called EMS. She does follow with Dr Ferreira outpatient and recently had EEG done. She is also scheduled for MRI and additional testing. She reports no chest pain or dyspnea or coughing. No vomiting or diarrhea abdominal pain. No urgency or abnormal. no Reports fever Records from [facility], patient was discharge on 10/30 for positive blood culture which was contaminant, elevated troponin and uncontrolled hypertension. Also because she fell and she could not get up. At that time she was discharged home with home care per physical therapy evaluation, the increase her dose of lisinopril to 10 mg On 10/25 also she was in the hospital for syncope and elevated troponin, at that time her troponin were stopped. Also on 10/17/2021 visited the emergency room for pain and lower abdomen and hallucination and she was feeling lightheadedness, at that time she was found to have urinary tract infection and she received antibiotics CT of the abdomen and pelvis without oral or IV contrast from 10/27/2021: No acute abdominal abnormality or pelvis abnormality. Kidneys were normal in size with no hydronephrosis On admission Vitals are stable but she is bradycardic with heart rate 50, 42,39. Shows elevated BP 178/70. Labs are unremarkable including CBC, INR. D-dimer is elevated at 2.1 Creatinine is elevated 1.3. Which looks baseline Normal liver enzymes and bilirubin Chest x-ray: No active cardiopulmonary disease. In the emergency room patient received magnesium and normal saline. V/Q scan was ordered which shows low probability for PE [employer] consulted Patient had a normal cardiac cath on 08/21/2021 She was found to have positive orthostatic blood pressures. Neurology was also consulted Brain CT showing minimal periventricular white matter hypodensity may be related to microvascular ischemic change. Follow up brain MRI is negative for acute intracranial process. There is no evidence for metastatic disease. She also had EEG done which is negative for focal slowing, no epileptiform discharges and no seizure found. 2 D Echocardiogram showing mildly increased septal wall thickness with an EF of 55-60%. Patient did not wish to undergo carotid Doppler. She was also found to have urinary retention and indwelling catheter was inserted, she was also started on flomax. In 11/21/2021 Discussion at the bedside with patient and her daughter the patient is agreeable to discharge to subacute rehab. Patient's cannot continue to care for her at home with her current activity level. We will continue off of the gabapentin and Xanax and start patient on low-dose Seroquel at bedtime. She will continue her neurological workup with Dr. Ferreira outpatient. Cardiology has resumed home dose lisinopril and recommending follow up with Dr Lam outpatient. She reports dizziness has improved with ambulation. She denies chest pain, no shortness of breath. Denies dysuria. She had a one time episode of diarrhea, C.Dif was negative. White count 7.9, sodium 135, potassium 3.7, BUN 29, creatinine 1.38, magnesium 1.7. She received electrolyte replacement, and wi ll repeat labs in 2 to 3 days outpatient. She is alert x 3, lungs are clear, S1 S2 auscultated. Abdomen is soft and nontender normoactive bowel sounds. She continues to report hallucinations and is aware of them while they are happening. Indwelling rucker catheter will be removed for voiding trial, we will continue patient on flomax. He is afebrile, heart rate 97, blood pressure 152/69, 95% room air. Please see medication reconciliation for list of current medication. Thank you for allowing us to this pain in the care of this patient. The impression and plan of care has been dictated by Shelley Yang, Nurse Practitioner as directed. Dr. Davis MD I have performed a history and physical examination and medical decision making of this patient, discussed the same with the dictator, and agree with the dictators assessment and plan as written, documented as a scribe. Based on total visit time, I have performed more than 50% of this visit. Patient Condition at Discharge: Fair Plan - Discharge Summary Discharge Rx Participant: No New Discharge Prescriptions: New Magnesium Oxide [Mag-Ox] 250 mg PO DAILY #3 tab INSULIN ASPART (NovoLOG) [NovoLOG (formulary)] 0 unit SQ ACHS each QUEtiapine [SEROquel] 25 mg PO HS #3 tab Tamsulosin [Flomax] 0.4 mg PO PC-BRKFST cap Continue Aspirin 81 mg PO HS allopurinoL [Zyloprim] 200 mg PO DAILY Multivitamins, Thera [Multivitamin (formulary)] 1 tab PO DAILY Cholecalciferol [Vitamin D3 (25 Mcg = 1000 Iu)] 50 mcg PO Q48H L.acidoph,Paracasei, B.lactis [Probiotic] 1 cap PO DAILY Atorvastatin [Lipitor] 10 mg PO HS Calcium Carbonate/Vitamin D3 [Calcium 600 mg-D3 20 mcg (800 unit)] 1 tab PO BID Insulin Glargine,Hum.rec.anlog [Lantus Solostar Pen] 15 units SQ DAILY Letrozole [Femara] 2.5 mg PO DAILY Turmeric Root Extract [Turmeric] 500 mg PO DAILY calcitrioL [Calcitriol] 0.25 mcg PO WE Acetaminophen [Tylenol Arthritis] 650 mg PO BID Ascorbic Acid [Vitamin C] 1,000 mg PO BID Omeprazole [PriLOSEC] 20 mg PO AC-BRKFST lisinopriL [Zestril] 10 mg PO HS Discontinued Glimepiride [Amaryl] 2 mg PO DAILY Gabapentin [Neurontin] 300 mg PO BID diphenhydrAMINE [Benadryl] 25 mg PO HS Pioglitazone [Actos] 15 mg PO DAILY ALPRAZolam [Xanax] 0.5 mg PO HS Discharge Medication List Aspirin 81 mg PO HS 09/30/14 [History] allopurinoL [Zyloprim] 200 mg PO DAILY 09/30/14 [History] Multivitamins, Thera [Multivitamin (formulary)] 1 tab PO DAILY 02/13/15 [History] Cholecalciferol [Vitamin D3 (25 Mcg = 1000 Iu)] 50 mcg PO Q48H 08/17/21 [History] L.acidoph,Paracasei, B.lactis [Probiotic] 1 cap PO DAILY 08/17/21 [History] Letrozole [Femara] 2.5 mg PO DAILY 08/17/21 [History] Turmeric Root Extract [Turmeric] 500 mg PO DAILY 08/17/21 [History] Acetaminophen [Tylenol Arthritis] 650 mg PO BID 11/18/21 [History] Ascorbic Acid [Vitamin C] 1,000 mg PO BID 11/18/21 [History] Atorvastatin [Lipitor] 10 mg PO HS 11/18/21 [History] Calcium Carbonate/Vitamin D3 [Calcium 600 mg-D3 20 mcg (800 unit)] 1 tab PO BID 11/18/21 [History] Insulin Glargine,Hum.rec.anlog [Lantus Solostar Pen] 15 units SQ DAILY 11/18/21 [History] Omeprazole [PriLOSEC] 20 mg PO AC-BRKFST 11/18/21 [History] calcitrioL [Calcitriol] 0.25 mcg PO WE 11/18/21 [History] lisinopriL [Zestril] 10 mg PO HS 11/18/21 [History] INSULIN ASPART (NovoLOG) [NovoLOG (formulary)] 0 unit SQ ACHS each 11/21/21 [Rx] Magnesium Oxide [Mag-Ox] 250 mg PO DAILY #3 tab 11/21/21 [Rx] QUEtiapine [SEROquel] 25 mg PO HS #3 tab 11/21/21 [Rx] Tamsulosin [Flomax] 0.4 mg PO PC-BRKFST cap 11/21/21 [Rx] Follow up Appointment(s)/Referral(s): Ezio Lam MD [STAFF PHYSICIAN] - 1 Week Jack Maya MD [Primary Care Provider] - 1-2 days [facility] Vis[facility] Nurse, [NON-STAFF] - Lizzie Hayden MD [STAFF PHYSICIAN] - 1 Week Guillermo Ferreira MD [Medical Doctor] - 12/13/21 Ambulatory/Diagnostic Orders: Basic Metabolic Panel [LAB.AMB] Time Frame: 3 Days, Location: None Selected Complete Blood Count w/diff [LAB.AMB] Time Frame: 2 Days, Location: None Selected Magnesium [LAB.AMB] Time Frame: 3 Days, Location: None Selected Activity/Diet/Wound Care/Special Instructions: Recommend to continue with bilateral lower extremity compression stockings Continue to hold oral diabetic agents and continue with lantus and blood glucose monitoring Continue to monitor blood pressure Follow up with cardiology Dr Lam, nephrology Dr Hayden and primary care. Recommend repeat labs in 2-3 days outpatient. Discharge Disposition: TRANSFER TO SNF/ECF
--- NOTE | 2021-11-21 15:40 | P.PN ---
Subjective Progress Note Date: 11/21/21 Per the patient's nurse, the patient is about the same. According to patient to continues to have visual hallucination. Objective - Vital Signs Vital signs: Vital Signs Temp 98.3 F 11/21/21 08:00 Pulse 97 11/21/21 08:00 Resp 18 11/21/21 08:00 BP 188/68 11/21/21 08:00 Pulse Ox 97 11/21/21 08:00 FiO2 Intake & Output 11/20/21 11/21/21 11/21/21 18:59 06:59 18:59 Intake Total 240 280 Output Total 2200 Balance -2200 240 280 Intake: Oral 240 280 Output: Urine 2200 Other: Voiding Method Indwelling Catheter Indwelling Catheter Indwelling Catheter # Voids 5 1 # Bowel Movements 6 - Exam GENERAL: The patient is lying in bed and is not in acute distress. NEUROLOGICAL: Higher mental function: The patient is awake, alert, oriented to self, place and time. Patient is following commands. No aphasia and no neglect. Cranial nerves: The pupils are round, equal and reactive to light. Extraocular movement is limited horizontal gaze but at time is able to look to right and left but needed time and was able to do it after couple tries. Facial sensation is normal to touch throughout. The facial strength is normal throughout. Tongue is midline and moved [id number] without any difficulty. No dysarthria is noted. Shoulder shrug is normal bilaterally. Motor: The strength is individual strength is limited but lifting bilateral uppers and lowers above gravity. Normal tone and bulk. No resting or end of action tremors. Cerebellum: Normal finger to nose bilaterally. Sensation: Sensation is normal to touch throughout. SOME OF THE WORK-UP DURING THIS HOSPITAL VISIT: Orthostatic vitals is supine blood pressure of 129/72 the, sitting is 101/62 and standing is of 86/53. Her orthostatic is positive Folate >20; TSH is normal 2.47; Hemoglobin A1c: 6.7 MRI of the brain is reported as no evidence for acute intracranial processes. No evidence for abnormal intracranial postcontrast enhancement suggest metastatic disease. Nonspecific white matter changes. Prominent ventricular system fever to be age-related. I personally reviewed the MRI and I agree there is no acute subacute ischemia there is no enhancing lesion. 2-D echo was reported as increased left ventricular mass with preserved systolic function. Ejection fraction 55-60%. I looked at the body they reported and there is no mention of a mass. Will ask Cardiology to verify of the report. Routine EEG: Normal. There is no focal slowing, epileptiform discharges or seizure on the EEG. - Labs CBC & Chem 7: 11/21/21 08:32 11/21/21 08:32 Labs: Abnormal Lab Results - Last 24 Hours (Table) 11/20/21 11/20/21 11/21/21 Range/Units 16:19 20:18 06:09 RBC (3.80-5.40) m/uL Hgb (11.4-16.0) gm/dL Hct (34.0-46.0) % MCV (80.0-100.0) fL Sodium (137-145) mmol/L Carbon Dioxide (22-30) mmol/L BUN (7-17) mg/dL Creatinine (0.52-1.04) mg/dL Glucose (74-99) mg/dL POC Glucose (mg/dL) 218 H 147 H 148 H (70-110) mg/dL 11/21/21 11/21/21 11/21/21 Range/Units 08:32 08:32 11:51 RBC 3.09 L (3.80-5.40) m/uL Hgb 10.1 L (11.4-16.0) gm/dL Hct 31.0 L (34.0-46.0) % MCV 100.3 H (80.0-100.0) fL Sodium 135 L (137-145) mmol/L Carbon Dioxide 21 L (22-30) mmol/L BUN 29 H (7-17) mg/dL Creatinine 1.38 H (0.52-1.04) mg/dL Glucose 184 H (74-99) mg/dL POC Glucose (mg/dL) 154 H (70-110) mg/dL Microbiology - Last 24 Hours (Table) 11/19/21 12:35 Blood Culture - Preliminary Blood No Growth after 48 hours Assessment and Plan Assessment: * Recurrent near syncopal spells 4 (once in September, 3 in October), Due to positive orthostatic versus vasovagal. All of these spells occurred while patient was standing up on her feet. * Visual hallucination for past at least two weeks, and memory loss for past one month: MRI Brain is negative for stroke or enhancing mass. Rule out any neurodegerative disease: Such as Lewy Body Dementia. * Positive orthostatic hypotension * History of left breast cancer post radiation and chemotherapy. * Hypertension * Hyperlipidemia * Diabetes * Osteoarthritis * Chronic renal insufficiency * Macrocytosis Plan: * Patient states that she had an EEG already performed at Dr. Álvarez office last week, the results are pending. She had carotid Doppler and echo performed at [facility] recently with these near syncopal spells. Pending report to be faxed over. * She did not want to repeat carotid duplex. Consider prolonged ambulatory EEG as outpatient to rule out seizure not seeing on routine EEG's. * Patient is already scheduled for an ENG, MRI of the lumbar spine, VAT and MEAGAN at Dr. Álvarez office. * Regarding orthostatic hypotension recommend compression stocking (spoke with nurse in trying in obtain them) and if ineffective salt tab 1gm bid. Will defer final management to cardiology and primary team. * From neurological perspective patient does not have stroke for antiplatelets or statin use and will defer that to primary team. * Will defer the rest of medical management to the primary team. If no events by tomorrow then patient is clear for discharge from neurological perspective. The plan is discussed with patient and her daughter. Yuan Styles M.D. Neuro-Hospitalist Time with Patient: Less than 30
[2021-11-21 15:44] VITALS: BP 188/65; PULSE 86
== END 2021-11-21 17:34 | DRG 637 ==
LOC: EC 04:29 → 3SCARD 06:10
PROVIDERS: ADMIT Hospitalist; ATTEND Hospitalist
PROC: 4A10X4Z Monitoring of Central Nervous Electrical Activity, External Approach (ICD-10-PCS; principal; 2021-11-20)
DX: E11.65 Type 2 diabetes mellitus with hyperglycemia (principal); G92.8 Other toxic encephalopathy; K90.41 Non-celiac gluten sensitivity; I12.9 Hypertensive chronic kidney disease with stage 1 through stage 4 chronic kidney disease, or unspecified chronic kidney disease; E11.40 Type 2 diabetes mellitus with diabetic neuropathy, unspecified; E11.22 Type 2 diabetes mellitus with diabetic chronic kidney disease; R00.1 Bradycardia, unspecified; Z79.4 Long term (current) use of insulin; E86.0 Dehydration; N18.30 Chronic kidney disease, stage 3 unspecified; R44.1 Visual hallucinations; I95.1 Orthostatic hypotension; R41.3 Other amnesia; G43.909 Migraine, unspecified, not intractable, without status migrainosus; D75.89 Other specified diseases of blood and blood-forming organs; R50.9 Fever, unspecified; R33.8 Other retention of urine; E78.5 Hyperlipidemia, unspecified; E66.9 Obesity, unspecified; I08.1 Rheumatic disorders of both mitral and tricuspid valves; Z68.39 Body mass index [BMI] 39.0-39.9, adult; M10.9 Gout, unspecified; J45.909 Unspecified asthma, uncomplicated; K21.9 Gastro-esophageal reflux disease without esophagitis; L40.9 Psoriasis, unspecified; M19.90 Unspecified osteoarthritis, unspecified site; Z90.49 Acquired absence of other specified parts of digestive tract; Z90.710 Acquired absence of both cervix and uterus; Z98.42 Cataract extraction status, left eye; Z98.41 Cataract extraction status, right eye; Z88.1 Allergy status to other antibiotic agents; Z88.8 Allergy status to other drugs, medicaments and biological substances; Z79.82 Long term (current) use of aspirin; Z79.84 Long term (current) use of oral hypoglycemic drugs; Z79.899 Other long term (current) drug therapy; Z87.19 Personal history of other diseases of the digestive system; Z92.21 Personal history of antineoplastic chemotherapy; Z91.011 Allergy to milk products; Z85.3 Personal history of malignant neoplasm of breast; Z87.440 Personal history of urinary (tract) infections; Z92.3 Personal history of irradiation; W19.XXXA Unspecified fall, initial encounter; Y92.009 Unspecified place in unspecified non-institutional (private) residence as the place of occurrence of the external cause; Z79.811 Long term (current) use of aromatase inhibitors; Z80.7 Family history of other malignant neoplasms of lymphoid, hematopoietic and related tissues; Z85.828 Personal history of other malignant neoplasm of skin
CPT/HCPCS: 36415; 70450; 70553; 71045; 78582; 80048; 80053; 81003; 82607; 82746; 83036; 83735; 84145; 84443; 84484; 85025; 85379; 85610; 85730; 87040; 87324; 87493; 87635; 93005; 93306; 93970; 95816; 99285

== ENCOUNTER → 2021-12-21 | Outpatient (CLI) | payer MEDICARE ==
[~2021-12-21] MED LIST changes: -ALPRAZolam 0.25 MG TAB PO PRN; -ALPRAZolam 0.5 MG TAB PO PRN; -ASPIRIN 325 MG TAB PO STA; -ATORVASTATIN 80 MG TAB PO STA; -HEPARIN SODIUM,PORCINE 10,000 UNIT in SODIUM CHLORIDE 0.9% 1,000 ML IRRIGATION PRN; -HEPARIN SODIUM,PORCINE 2,500 UNIT in SODIUM CHLORIDE 0.9% 250 ML IRRIGATION PRN; +IODINE/POTASS IOD (LUGOLS) BOTTLE ONE; -NITROGLYCERIN SL TABS 0.4 MG TAB SUBLINGUAL PRN
--- NOTE | 2021-12-25 08:11 | NM ---
EXAMINATION TYPE: NM DatScan Brain SPECT DATE OF EXAM: 12/21/2021 COMPARISON: CT brain November 18, 2021. MRI brain November 20, 2021 HISTORY: Tremors. TECHNIQUE: 10 drops of Lugol's solution was administered 1 hour prior to injection as a thyroid bloc allen agent. After the administration of 4.49 mCi I-123 Ioflupane DaTscan. Images obtained 3 hours p ost injection. SPECT images of the brain were acquired with axial and coronal reconstructions. FINDINGS: The DaTSCAN demonstrates normal uptake of tracer throughout the striata. Consequently there is no evidence of loss of the pre-synaptic dopaminergic terminals on this investig ation. IMPRESSION: This normal appearance is against a diagnosis of idiopathic Parkinson?s disease (PD) or a Parkinsonia n syndrome (PS) and is seen in healthy individuals and also patients with essential tremor (ET), drug induced parkinsonism, and vascular pseudo-parkinsonism.
== END | disposition home or self-care (01) ==
LOC: RADNMMAIN 10:58
PROVIDERS: ATTEND Psychiatry & Neurology Neurology
DX: R25.1 Tremor, unspecified (principal)
CPT/HCPCS: 78803; A9584

== ENCOUNTER → 2023-05-29 | Day surgery (SDC) | payer MEDICARE ==
[2023-05-29 06:52] LABS: Glucose,Whole Blood 143 mg/dL (70-110)
[2023-05-29] MEDS: SODIUM CHLORIDE 0.9% 1,000 ML IV SCH (07:05)
[2023-05-29 07:48] VITALS: RESP 16; TEMP 98.4
[2023-05-29 09:59] VITALS: BP 192/91; PULSE 70
--- NOTE | 2023-05-29 11:23 | P.EPPROC ---
- EP Procedure Note Electrophysiology Procedure Note: Diagnosis Recurrent syncope Twelve-lead EKG shows sinus mechanism normal MI narrow QRS normal ST segments normal QT interval Tilt table test per protocol Baseline blood pressure elevated 212/93 mmHg, baseline heart rate 73 beats a minute Patient was tilted upright in angle of 70 degrees per protocol She remained hypertensive through the procedure Heart rates remained normal There was a gradual progressive decline in her blood pressure The lowest blood pressure recorded was 138/62 mmHg Occasionally she would feel warm, lightheaded and felt crummy When she was laid supine her blood pressure once again increased to 193/88 mmHg Impression Normal twelve-lead EKG Supine hypertension Orthostatic hypotension syndrome with a steady progressive decline in blood pressure
== END ==
LOC: CATHEP 06:25
PROVIDERS: ATTEND Internal Medicine Clinical Cardiac Electrophysiology
DX: R55 Syncope and collapse (principal); I10 Essential (primary) hypertension; E11.9 Type 2 diabetes mellitus without complications; G47.33 Obstructive sleep apnea (adult) (pediatric); I34.0 Nonrheumatic mitral (valve) insufficiency; Z79.899 Other long term (current) drug therapy
CPT/HCPCS: 93660